=== PATIENT | female | born 1935 | race Caucasian/White ===

== ENCOUNTER 2017-12-11 08:40 | Inpatient (IN) ==
[2017-12-11] MEDS ORDERED: Ketorolac 15 MG/ML VIAL IVP ONE (09:00)
[2017-12-11] MEDS ORDERED: Pantoprazole 40 MG VIAL IVP ONE (09:01)
--- NOTE | 2017-12-11 09:06 | Emergency Department Note ---
Disposition Clinical Impression: Cholecystitis, Dilated bile duct, Troponin level elevated Disposition: Admitted As Inpatient Condition: Fair Abdominal Pain HPI - General Chief Complaint: ED Abdominal Pain Stated Complaint: ABD Pain Time Seen by Provider: 12/11/17 08:49 Source: patient Nursing Notes Reviewed: Yes Vital Signs Reviewed: Yes - History of Present Illness HPI Narrative: 82 year old female with history of GERD, hypertension presents with abdominal pain. Pt reported intermittent upper abdominal pain for 2 weeks. Since 3 am this morning, the pain became constant. It radiate to right upper abdomen and back. Associate with nausea. No vomiting. Loose stool once this morning. Brownish color. No blood in it. reported frequently urinating for a while, no dysuria. pt denied chill and fever. Appendectomy 50 years ago. No other abdomen surgery. Pt Subjective Complaint: abdominal pain Onset (ago): week(s) (2) Consistency: intermittent, Worsening Location: RUQ, epigastric Pain Scale: 10 Quality: stabbing, sharp Radiation: back - Related Data Home Medications Medication Instructions Recorded Confirmed Aspirin [Lo-Dose Aspirin EC] 81 mg PO DAILY 12/11/17 12/11/17 Cholecalciferol (D-3) [Vitamin D] 1,000 unit PO DAILY 12/11/17 12/11/17 Docusate [Colace] 100 mg PO BID PRN 12/11/17 12/11/17 Famotidine [Pepcid] 20 mg PO BID PRN 12/11/17 12/11/17 Isosorbide MONOnitrate (24 HR) 30 mg PO DAILY 12/11/17 12/11/17 [Imdur] Metoprolol Succinate [Toprol Xl] 25 mg PO HS 12/11/17 12/11/17 Vitamin E Acetate [Vitamin E] 400 unit PO DAILY 12/11/17 12/11/17 Allergies Allergy/AdvReac Type Severity Reaction Status Date / Time rosuvastatin [From Crestor] AdvReac Cramping Verified 12/11/17 13:47 of the Muscles Ukcqops-Cmq-Njq Reductase AdvReac Cramping Verified 12/11/17 13:47 Inhibitor of the [Statins] Muscles Constitutional: Denies: fever, chills Eyes: Denies: eye pain, eye discharge ENT ED: Denies: ear pain, throat pain Cardiovascular: Denies: chest pain, palpitations Respiratory: Denies: cough, dyspnea Gastrointestinal: Reports: abdominal pain, nausea. Denies: vomiting, diarrhea Genitourinary: Denies: urgency, dysuria, frequency Musculoskeletal: Denies: back pain, neck pain, joint swelling Integumentary: Denies: rash, abrasion, lesions Neurological: Denies: headache, weakness Psychiatric: Denies: anxiety, depression Endocrine: Denies: fatigue, heat or cold intolerance Hematological/Lymphatic: Denies: easy bleeding, easy bruising Allergic/Immunologic: Denies: facial swelling, urticaria Abdominal Pain PMH - Past Medical History Medical history: Reports: cancer, GERD, hypertension, TIA, other Female Surgical History: Reports: appendectomy Psychiatric history: Reports: anxiety - Social History Smoking status: Never smoker Alcohol use: Reports: none Drug use: Reports: none Physical Exam - General General appearance: alert, in no apparent distress - Head Head exam: atraumatic, normal inspection - Eye Eye exam: Present: normal appearance. Absent: scleral icterus, conjunctival injection - ENT ENT exam: normal exam, normal external ear exam - Neck Neck exam: Present: normal inspection, full ROM, trachea midline. Absent: tenderness - Chest Chest inspection: Present: normal inspection, symmetric chest wall rise. Absent : tenderness - Respiratory Respiratory exam: Present: normal lung sounds bilaterally. Absent: respiratory distress, wheezes - Cardiovascular Cardiovascular exam: Present: regular rate, normal rhythm - Abdominal Exam Abdominal exam: Present: soft, tenderness Abdominal tenderness: Present: RUQ, epigastrium - Extremities Exam Extremities exam: Present: normal inspection, full ROM. Absent: tenderness - Back Exam Back exam: Present: normal inspection, full ROM. Absent: tenderness - Neurological Exam Neurological exam: Present: alert, oriented X3 - Psychiatric Psychiatric exam: Present: normal affect, normal mood - Skin Skin exam: Present: warm, intact Course Vital Signs Temperature 98.1 F 12/11/17 08:41 Pulse Rate 71 12/11/17 08:41 Respiratory Rate 18 12/11/17 08:41 Blood Pressure 153/73 12/11/17 08:41 O2 Sat by Pulse Oximetry 97 12/11/17 08:41 Temperature 97.8 F 12/11/17 14:19 Pulse Rate 128 12/11/17 14:19 Respiratory Rate 18 12/11/17 14:19 Blood Pressure 117/54 12/11/17 14:19 O2 Sat by Pulse Oximetry 92 12/11/17 14:19 Oxygen Delivery Oxygen Delivery Room Air Abdominal Pain - MDM Narrative Medical decision making narrative: 82 year old female with history of hypertension and GERD presents with abdominal pain. Pt has intermittent upper abdominal pain for weeks. Pt complained of sudden onset severe pain in upper and right upper abdomen since 3 am this morning. It is constant sharp pain and radiate to right side back. Associate with nausea. No vomiting. No chill and fever. Physical exam: RUQ and Epigastrium tender. Labs: elelvated ALT,AST, ALK. Abdomen ct and ultrasound supported acute cholecystitis, dilated bile duct. Dr. Hinojosa saw the patient, Antibiotics started in ER. Dr. Hinojosa spoke with Dr. Cruz on the phone, suggested to admit patient to hospital due to elevated troponin I (pt has no chest pain, unremarkable EKG, most likely false positive, but need medical clearance). surgeon will see pt this afternoon, NPO from now. - Lab Data Lab results reviewed: Yes I reviewed the patient's lab results. Result diagrams: 12/11/17 08:51 12/11/17 08:51 Lab Results 12/11/17 12/11/17 12/11/17 Range/Units 08:51 08:51 14:00 WBC 11.1 (4.3-11.1) K/mcL RBC 3.81 L (3.82-4.97) M/mcL Hgb 12.3 (11.5-15.4) g/dL Hct 36.8 (35.3-44.9) % MCV 96.6 (83.0-100.0) fL MCH 32.3 (28.0-33.3) pg MCHC 33.4 (31.6-35.5) g/dL RDW 13.9 (11.5-14.5) % Plt Count 317 (140-400) K/mcL MPV 11.5 (9.4-12.4) fL Immature Gran % 0.5 (0-4) % Seg Neutrophils % 68.0 % Lymphocytes % 21.9 % Monocytes % 8.8 % Eosinophils % 0.4 % Basophils % 0.4 % Neutrophils # 7.6 (1.6-8.9) K/mcL Lymphocytes # 2.4 (0.6-4.6) K/mcL Monocytes # 1.0 (0.0-1.3) K/mcL Eosinophils # 0.1 (0.0-0.6) K/mcL Basophils # 0.0 (0.0-0.2) K/mcL Sodium 138 (136-145) mEq/L Potassium 3.8 (3.5-5.1) mEq/L Chloride 101 (98-107) mEq/L Carbon Dioxide 25 (23-29) mEq/L BUN 17 (8-23) mg/dL Creatinine 0.60 (0.60-1.20) mg/dL Est GFR ( Amer) > 60 (> 60) Est GFR (Non-Af Amer) > 60 (> 60) BUN/Creatinine Ratio 28 H (6-26) Glucose 114 H (70-105) mg/dL Calculated Osmolality 288 (280-300) Calcium 9.9 (8.6-10.3) mg/dL Total Bilirubin 2.8 H (0.3-1.0) mg/dL AST 181 H (13-39) Units/L ALT 211 H (7-52) Units/L Alkaline Phosphatase 708 H (34-104) Units/L Troponin I 0.04 H* (< 0.04) ng/mL Serum Total Protein 7.6 (6.4-8.9) g/dL Albumin 4.1 (3.5-5.7) g/dL Globulin 3.5 (2.4-3.5) g/dL Albumin/Globulin Ratio 1.2 (1.1-2.2) Lipase 61 (11-82) Units/L Urine Color [place] A (Yellow) Urine Clarity Cloudy A (Clear) Urine pH 5.5 (5.0-8.0) pH Units Ur Specific [place] 1.029 H (1.010-1.025) Urine Protein Trace (Neg-Trace) mg/dL Urine Glucose (UA) Normal (Normal) mg/dL Urine Ketones Trace H (Negative) mg/dL Urine Blood Negative (Negative) Urine Nitrite Negative (Negative) Urine Bilirubin Moderate H (Negative) Urine Urobilinogen Normal (Normal) mg/dL Ur Leukocyte Esterase Small H (Negative) Urine Microscopic RBC 0-3 (0-3) per hpf Urine Microscopic WBC 3-5 H (0-3) per hpf Ur Squamous Epith Cells Many H (None-Few) per lpf Amorphous Sediment Moderate H (Few) Urine Bacteria None Seen (None-Few) per hpf Hyaline Casts Few (None-Few) per lpf Urine Mucus Moderate H (Few) Ur Culture Indicated? NO. A (NO) - Radiology Data Radiology results reviewed: Yes I reviewed the patient's radiology results. COMPARISON: Abdominal CT 08/10/2017, gallbladder ultrasound 12/11/2017 HISTORY: ORDERING SYSTEM PROVIDED HISTORY: RUQ abd pain Additional tech notes: 16 One week history of generalized abdominal pain. FINDINGS: Lower Chest: There is mild bibasilar atelectasis. Organs: The gallbladder is distended, and demonstrates multiple layering gallstones, and also appears mildly thick-walled. There is also a mild amount of fat stranding within the gallbladder fossa. These findings are concerning for acute cholecystitis. There is mild common duct dilatation with a few small high attenuation foci noted within the proximal common duct, which could represent choledocholithiasis. The liver is unremarkable in noncontrast appearance. There are calcified splenic granulomata. The pancreas is unremarkable in CT appearance, without acute inflammatory change. The adrenal glands are normal bilaterally. There is chronic bilateral perinephric stranding, likely secondary to chronic medical renal disease. There is a cortical calcification within the medial aspect of the right kidney upper pole. There are no urinary collecting system calculi or hydronephrosis identified. GI/Bowel: Evaluation of the hollow GI tract demonstrates no evidence of abnormal bowel wall thickening, dilatation, or obstruction. There is no evidence of appendicitis. There is mild colonic diverticulosis. Pelvis: The urinary bladder is normal. Multiple phleboliths are noted. The uterus and bilateral adnexa are unremarkable in noncontrast appearance. There is no free pelvic fluid or pathologic lymphadenopathy. Peritoneum/Retroperitoneum: No intraperitoneal free air or free fluid is identified. There is mild fat stranding within the gallbladder fossa. No pathologic lymphadenopathy is identified. 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 No significant abdominal wall hernia is identified. Bones/Soft Tissues: There has been interval development of wedge compression fractures of the T9 and L2 vertebral bodies, which are both sclerotic in appearance, new from 08/10/2017. There is a stable wedge compression deformity of the superior endplate of L1. No definite osteolytic or osteoblastic lesion is seen. CT/CT abd pelvis wo no iv no oral IMPRESSION: 1. CT findings are suggestive of acute cholecystitis, with cholelithiasis, gallbladder distention, and wall thickening of the gallbladder. Suggest clinical correlation and correlation with today's gallbladder ultrasound findings. 2. Suspected choledocholithiasis with mild common duct dilatation. Correlation with today's gallbladder ultrasound is also suggested. 3. 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 Further follow-up of this abnormality is as advised below. 4. Acute to subacute wedge compression fractures of T9 and L2, new from prior studies. Suggest further characterization with a follow-up thoracolumbar MRI. RECOMMENDATIONS: Managing Abdominal Aortic Aneurysms 3.0-3.4 cm: Every 3 years. Reference: J Vasc Surg. 2008;50(4 Suppl):S2-49 D/ / 12/11/2017 11:26:34 Jhonny Faith MD / [email or web address] FINDINGS: LIVER: The liver demonstrates normal echogenicity without evidence of intrahepatic biliary ductal dilatation. BILIARY SYSTEM: The gallbladder is distended with shadowing gallstones and sludge. The gallbladder wall appears mildly thickened with trace pericholecystic fluid. The sonographic Hernandez sign is present. The common bile duct is dilated to 12 mm with echogenic foci seen within the common bile duct. RIGHT KIDNEY: The right kidney is grossly unremarkable without evidence of hydronephrosis. PANCREAS: Visualized portions of the pancreas are unremarkable. OTHER: The distal abdominal aorta measures up to 3.3 cm. US/US gall bladder IMPRESSION: 1. Gallstones are present with findings consistent with acute cholecystitis. 2. Choledocholithiasis is present with dilation of the common bile duct up to 1.2 cm. There is at least mild intrahepatic biliary dilation. 3. Infrarenal abdominal aortic aneurysm measures up to 3.3 cm. Follow-up per guidelines below. RECOMMENDATIONS: Managing Abdominal Aortic Aneurysms 2.6-2.9 cm: Every 5 years* 3.0-3.4 cm: Every 3 years. 3.5-3.9 cm: Every 1 year. 4.0-4.4 cm: Every 1 year. Recommend vascular consultation. 4.5-5.4 cm: Every 6 months. Recommend vascular consultation. Greater than or equal to 5.5 cm: Referral to vascular surgeon. *For abdominal aortas with maximum diameter of 2.6-2.9 cm meeting criteria for AAA (>50% of proximal normal segment). Reference: J Vasc Surg. 2009 May;50(4 Suppl):S2-49 D/ / 12/11/2017 11:34:12 Eduardo Hannon MD / saul
[2017-12-11] MEDS: Ondansetron 4 MG/2 ML VIAL IVP ONE ×2 (09:12→21:34)
[2017-12-11 09:15] LABS: Basophils % 0.4 %; Eosinophils # 0.1 K/mcL (0.0-0.6); Eosinophils % 0.4 %; Hematocrit 36.8 % (35.3-44.9); Hemoglobin 12.3 g/dL (11.5-15.4); Immature Granulocytes % 0.5 % (0-4); Lymphocytes # 2.4 K/mcL (0.6-4.6); Lymphocytes % 21.9 %; Mean Corpuscular HGB Conc 33.4 g/dL (31.6-35.5); Mean Corpuscular Hemoglobin 32.3 pg (28.0-33.3); Mean Corpuscular Volume 96.6 fL (83.0-100.0); Mean Platelet Volume 11.5 fL (9.4-12.4); Monocytes % 8.8 %; Neutrophils # 7.6 K/mcL (1.6-8.9); Platelet Count 317 K/mcL (140-400); Red Blood Count 3.81 M/mcL (3.82-4.97); Red Cell Distribution Width 13.9 % (11.5-14.5)
[2017-12-11] MEDS ORDERED: 0.9 % Sodium Chloride 1,000 ML ONE (09:34)
[2017-12-11 09:42] LABS: Alanine Aminotransferase 211 Units/L (7-52); Albumin 4.1 g/dL (3.5-5.7); Albumin/Globulin Ratio 1.2 (1.1-2.2); Alkaline Phosphatase 708 Units/L (34-104); Aspartate Amino Transferase 181 Units/L (13-39); BUN/Creatinine Ratio 28 (6-26); Bilirubin,Total 2.8 mg/dL (0.3-1.0); Blood Urea Nitrogen 17 mg/dL (8-23); Calcium 9.9 mg/dL (8.6-10.3); Carbon Dioxide 25 mEq/L (23-29); Chloride 101 mEq/L (98-107); Globulin 3.5 g/dL (2.4-3.5); Glucose 114 mg/dL (70-105); Lipase 61 Units/L (11-82); Osmolality,Calculated 288 (280-300); Potassium 3.8 mEq/L (3.5-5.1); Sodium 138 mEq/L (136-145); Total Protein 7.6 g/dL (6.4-8.9); eGFR For African Americans > 60 (> 60); eGFR For Non-African Americans > 60 (> 60)
[2017-12-11 09:49] LABS: Troponin I 0.04 ng/mL (< 0.04)
--- NOTE | 2017-12-11 09:58 | Emergency Department Note ---
Disposition Clinical Impression: Cholecystitis, Dilated bile duct, Troponin level elevated Disposition: Admitted As Inpatient Condition: Fair General Adult HPI - General Chief complaint: ED Abdominal Pain Stated complaint: ABD Pain Time Seen by Provider: 12/11/17 08:49 Source: patient - History of Present Illness Pain Scale: 8 - Related Data Home Medications Medication Instructions Recorded Confirmed Aspirin [Lo-Dose Aspirin EC] 81 mg PO DAILY 12/11/17 12/11/17 Cholecalciferol (D-3) [Vitamin D] 1,000 unit PO DAILY 12/11/17 12/11/17 Docusate [Colace] 100 mg PO BID PRN 12/11/17 12/11/17 Famotidine [Pepcid] 20 mg PO BID PRN 12/11/17 12/11/17 Isosorbide MONOnitrate (24 HR) 30 mg PO DAILY 12/11/17 12/11/17 [Imdur] Metoprolol Succinate [Toprol Xl] 25 mg PO HS 12/11/17 12/11/17 Vitamin E Acetate [Vitamin E] 400 unit PO DAILY 12/11/17 12/11/17 Allergies Allergy/AdvReac Type Severity Reaction Status Date / Time rosuvastatin [From Crestor] AdvReac Cramping Verified 12/11/17 13:47 of the Muscles [place]-Llh-Axr Reductase AdvReac Cramping Verified 12/11/17 13:47 Inhibitor of the [Statins] Muscles Constitutional: Denies: fever, chills Eyes: Denies: eye pain, eye discharge ENT ED: Denies: ear pain, throat pain Cardiovascular: Denies: chest pain, palpitations Respiratory: Denies: cough, dyspnea Gastrointestinal: Reports: abdominal pain, nausea. Denies: vomiting, diarrhea Genitourinary: Denies: urgency, dysuria, frequency Musculoskeletal: Denies: back pain, neck pain, joint swelling Integumentary: Denies: rash, abrasion, lesions Neurological: Denies: headache, weakness Psychiatric: Denies: anxiety, depression Endocrine: Denies: fatigue, heat or cold intolerance Hematological/Lymphatic: Denies: easy bleeding, easy bruising Allergic/Immunologic: Denies: facial swelling, urticaria Past Medical History - Past Medical History Medical history: Reports: cancer, GERD, hypertension, TIA, other Surgical history: Reports: appendectomy, breast surgery (Right radical mastectomy for breast cancer), cancer surgery, orthopedic, other (Reduction internal fixation left elbow. Removal of hardware.) Psychiatric history: Reports: anxiety - Social History Smoking Status: Never smoker Smokeless Tobacco Status: No Alcohol use: Reports: none Drug use: Reports: none Physical Exam - General General appearance: alert, in no apparent distress Course - Consultations Consultation #1: Discussed with . will see the patient in contrast Time: 11:30 Consultation #2: Discussed with Dr. Díaz who requested admission to hospitalist needles to the patient in consult. Time: 12:24 Consultation #3: Discussed with Dr. Rosas, admit Time: 13:07 Vital Signs Temperature 98.1 F 12/11/17 08:41 Pulse Rate 71 12/11/17 08:41 Respiratory Rate 18 12/11/17 08:41 Blood Pressure 153/73 12/11/17 08:41 O2 Sat by Pulse Oximetry 97 12/11/17 08:41 Temperature 97.8 F 12/11/17 14:19 Pulse Rate 128 12/11/17 14:19 Respiratory Rate 18 12/11/17 14:19 Blood Pressure 117/54 12/11/17 14:19 O2 Sat by Pulse Oximetry 92 12/11/17 14:19 Oxygen Delivery Oxygen Delivery Room Air Medical Decision Making - Lab Data Result diagrams: 12/11/17 08:51 12/11/17 08:51 Lab Results 12/11/17 12/11/17 12/11/17 Range/Units 08:51 08:51 14:00 WBC 11.1 (4.3-11.1) K/mcL RBC 3.81 L (3.82-4.97) M/mcL Hgb 12.3 (11.5-15.4) g/dL Hct 36.8 (35.3-44.9) % MCV 96.6 (83.0-100.0) fL MCH 32.3 (28.0-33.3) pg MCHC 33.4 (31.6-35.5) g/dL RDW 13.9 (11.5-14.5) % Plt Count 317 (140-400) K/mcL MPV 11.5 (9.4-12.4) fL Immature Gran % 0.5 (0-4) % Seg Neutrophils % 68.0 % Lymphocytes % 21.9 % Monocytes % 8.8 % Eosinophils % 0.4 % Basophils % 0.4 % Neutrophils # 7.6 (1.6-8.9) K/mcL Lymphocytes # 2.4 (0.6-4.6) K/mcL Monocytes # 1.0 (0.0-1.3) K/mcL Eosinophils # 0.1 (0.0-0.6) K/mcL Basophils # 0.0 (0.0-0.2) K/mcL Sodium 138 (136-145) mEq/L Potassium 3.8 (3.5-5.1) mEq/L Chloride 101 (98-107) mEq/L Carbon Dioxide 25 (23-29) mEq/L BUN 17 (8-23) mg/dL Creatinine 0.60 (0.60-1.20) mg/dL Est GFR ( Amer) > 60 (> 60) Est GFR (Non-Af Amer) > 60 (> 60) BUN/Creatinine Ratio 28 H (6-26) Glucose 114 H (70-105) mg/dL Calculated Osmolality 288 (280-300) Calcium 9.9 (8.6-10.3) mg/dL Total Bilirubin 2.8 H (0.3-1.0) mg/dL AST 181 H (13-39) Units/L ALT 211 H (7-52) Units/L Alkaline Phosphatase 708 H (34-104) Units/L Troponin I 0.04 H* (< 0.04) ng/mL Serum Total Protein 7.6 (6.4-8.9) g/dL Albumin 4.1 (3.5-5.7) g/dL Globulin 3.5 (2.4-3.5) g/dL Albumin/Globulin Ratio 1.2 (1.1-2.2) Lipase 61 (11-82) Units/L Urine Color [place] A (Yellow) Urine Clarity Cloudy A (Clear) Urine pH 5.5 (5.0-8.0) pH Units Ur Specific [place] 1.029 H (1.010-1.025) Urine Protein Trace (Neg-Trace) mg/dL Urine Glucose (UA) Normal (Normal) mg/dL Urine Ketones Trace H (Negative) mg/dL Urine Blood Negative (Negative) Urine Nitrite Negative (Negative) Urine Bilirubin Moderate H (Negative) Urine Urobilinogen Normal (Normal) mg/dL Ur Leukocyte Esterase Small H (Negative) Urine Microscopic RBC 0-3 (0-3) per hpf Urine Microscopic WBC 3-5 H (0-3) per hpf Ur Squamous Epith Cells Many H (None-Few) per lpf Amorphous Sediment Moderate H (Few) Urine Bacteria None Seen (None-Few) per hpf Hyaline Casts Few (None-Few) per lpf Urine Mucus Moderate H (Few) Ur Culture Indicated? NO. A (NO) Attestation Statement - Attestation Attestation: For this encounter, I have reviewed the [employer] FINAL or PA documentation, treatment plan, and medical decision making; and I have had face to face time with this patient. 82-year-old who comes in complaining of right upper quadrant pain. Has seen her family doctor who had ordered an ultrasound but insurance issues has not prevented her from getting it. Her pain is getting worse. Patient was initially seen by the PA and was given meds. Nursing staff came to me because the patient was pale and diaphoretic initial blood pressure 147 systolic. Repeat blood pressure was 91 over palp. On exam patient is tender to right upper quadrant going through to her back it will feel pulsatile mass. Patient will be given a fluid bolus ultrasound is pending CT of the abdomen pending. Close monitoring of blood pressure.
[2017-12-11] MEDS ORDERED: MetroNIDAZOLE 500 MG/100 ML 500 MG/100 ML BAG IVPB ONE (11:03)
--- NOTE | 2017-12-11 13:35 | Electrocardiograph Report ---
[facility] Test Date: 2017-12-11 Pat Name: Bre Lozano Department: 103 Room: 3A62 Gender: F Photo Technologist: : [id number] Requested By: Chuck Hayes Order Number: [id number] Reading MD: Koby Irvin MD Measurements Intervals [place] Rate: 55 P: 82 ID: [id number] QRS: -79 QRSD: 141 T: 27 QT: 474 QTc: 463 Interpretive Statements SINUS BRADYCARDIA RIGHT BUNDLE BRANCH BLOCK [120+ ms QRS DURATION, UPRIGHT V1, 40+ ms S IN I/aVL/V4/V5/V6] LEFT ANTERIOR FASCICULAR BLOCK [QRS AXIS <= -45, QR IN I, RS IN II] Electronically Signed On 12-11-2017 13:34:18 EDT by Koby Irvin MD
[2017-12-11] MEDS ORDERED: Naloxone 0.4 MG/ML INJ IVP PRN (14:07)
[2017-12-11 14:08] LABS: Bilirubin,Urine Moderate (Negative); Blood,Urine Negative (Negative); Clarity,Urine Cloudy (Clear); Color,Urine Orange (Yellow); Glucose,Urine (UA) Normal (Normal); Ketones,Urine Trace mg/dL (Negative); Leukocyte Esterase,Urine Small (Negative); Nitrite,Urine Negative (Negative); PH,Urine 5.5 pH Units (5.0-8.0); Protein,Urine Trace mg/dL (Neg-Trace); Specific Gravity,Urine 1.029 (1.010-1.025); Urobilinogen,Urine Normal (Normal)
[2017-12-11 14:12] LABS: Bacteria,Urine None Seen per hpf (None-Few); Hyaline Casts,Urine Few per lpf (None-Few); Squamous Epithelial Cell,Urine Many per lpf (None-Few)
[2017-12-11] MEDS ORDERED: Famotidine 20 MG TABLET PO PRN (14:12)
--- NOTE | 2017-12-11 14:14 | Internal Med History&Physical ---
Date of Encounter: 12/11/17 Time of Encounter: 14:13 Internal Medicine - H&P: HPI Chief complaint: right sided abdominal pain Admitted From: Emergency Dept Plans for Post Hospital Care: Home History of present illness: Ms. Lozano is a 82 year old female was about an medical history of hypertension, GERD, history of breast cancer and status post mastectomy many years back. Patient presented with a right-sided abdominal pain which is ongoing for last 48 hours but in last 24 hours it was gradually worsened. She decided to come to the emergency room at 3 AM the cause at that time the pain was very severe. Patient denies palpitation, shortness of breath, dizziness and diarrhea. Workup in the emergency room: Patient was evaluated in the emergency room. Baseline labs are drawn. It was consistent with acute cholecystitis. Reason for admission :acute cholecystitis patient might need a ERCP/surgical intervention. Past Med Surg Social Fam HX - Past Medical History Medical history: cancer, GERD, hypertension, TIA, other Psychiatric history: anxiety - Past Surgical History Surgical History: appendectomy, breast surgery (Right radical mastectomy for breast cancer), cancer surgery, orthopedic, other (Reduction internal fixation left elbow. Removal of hardware.) - Social History Smoking Status: Never smoker Smokeless Tobacco Status: No Alcohol use: none Drug use: none - Family History Father Hx Family Neurologic Disorders: Yes Sister Hx Family Cancer: Yes (colon) Brother Hx Family Cardiac Disorders: Yes Internal Medicine - H&P: Meds Aspirin [Lo-Dose Aspirin EC] 81 mg PO DAILY 12/11/17 [History] Cholecalciferol (D-3) [Vitamin D] 1,000 unit PO DAILY 12/11/17 [History] Docusate [Colace] 100 mg PO BID PRN 12/11/17 [History] Famotidine [Pepcid] 20 mg PO BID PRN 12/11/17 [History] Isosorbide MONOnitrate (24 HR) [Imdur] 30 mg PO DAILY 12/11/17 [History] Metoprolol Succinate [Toprol Xl] 25 mg PO HS 12/11/17 [History] Vitamin E Acetate [Vitamin E] 400 unit PO DAILY 12/11/17 [History] 3 Allergy/AdvReac Type Severity Reaction Status Date / Time rosuvastatin [From Crestor] AdvReac Cramping Verified 12/11/17 13:47 of the Muscles Mmdjhwh-Zzq-Sgp Reductase AdvReac Cramping Verified 12/11/17 13:47 Inhibitor of the [Statins] Muscles All Systems PM: A 10-system review of systems was performed and is negative for pertinent findings except as documented above in the HPI. - Constitutional Constitutional: no chills, no fever(s), no night sweats - EENT Eyes: no change in vision, no discharge, no pain, no photophobia Ears: no ear discharge, no ear pain, no tinnitus Nose, mouth and throat: no dysphagia, no nasal discharge, no neck pain, no sore throat - Cardiovascular Cardiovascular ROS IM: no chest pain, no diaphoresis, no dyspnea, no lightheadedness, no palpitations, no syncope - Respiratory Respiratory: no cough, no dyspnea, no wheezing, no excessive phlegm production - Gastrointestinal Gastrointestinal: abdominal pain, no diarrhea, no hematemesis, no hematochezia, no melena, no nausea, no vomiting - Genitourinary Genitourinary: no change in urinary stream, no dysuria, no flank pain, no hematuria - Musculoskeletal Musculoskeletal ROS IM: no numbness, no tingling - Integumentary Integumentary IM: no rash, no unusual bruising - Neurological Neurological ROS: no confusion, no convulsions, no focal weakness, no numbness, no tingling, no tremor(s) - Hematologic/Lymphatic Hematologic/Lymphatic: no easy bruising - Constitutional Vitals: Temp Pulse Resp BP Pulse Ox 98.1 F 63 18 110/55 98 12/11/17 08:58 12/11/17 12:59 12/11/17 12:59 12/11/17 12:59 12/11/17 12:59 General appearance: Present: A&O X 3, pleasant, no acute distress - Head Head exam: Present: atraumatic, normocephalic - Eye Eye exam: Present: PERRL, conjuntiva pink, sclera anicteric Pupils: Present: PERRL - Neck Neck exam general surgery: Present: supple, trachea midline. Absent: lymphadenopathy - Respiratory Respiratory exam: Present: CTAB. Absent: accessory muscle use, rales, rhonchi, wheezes - Cardiovascular Cardiovascular exam: Present: RRR, +S1, +S2. Absent: diastolic murmur, gallop, rubs, systolic murmur - GI/Abdominal GI/Abdominal exam: Present: normal bowel sounds, soft, no peritoneal signs. Absent: distended, tenderness - Extremities Exam Extremities exam: Present: warm, radial pulses palpable and symmetrical. Absent : calf tenderness, cyanotic, pedal edema - Neurological Exam Neurological exam: Present: CN II-XII intact, oriented X3, no focal deficits. Absent: pronater drift, facial droop, speech deficit - Skin Skin exam: Present: dry, intact Internal Med - H&P Results - Labs CBC & Chem 7: 12/11/17 08:51 12/11/17 08:51 - Assessment and plan (1) Acute cholecystitis Current Visit: Yes Status: Acute Assessment and plan: 80 per/mL Right-sided persistent pain. Ultrasound/CT scan/clinical picture consistent with: Acute cholecystitis On ciprofloxacin/Flagyl Pain control. Gastroenterology on board for possible ERCP. Surgery on board for further recommendations. I examined this patient in the emergency room. Plan of care extent to the patient. She verbalized understanding. (2) GERD (gastroesophageal reflux disease) Current Visit: No Status: Chronic Assessment and plan: Patient does have a gastroesophageal reflux disease. We will start patient on PPI Qualifiers: Esophagitis presence: without esophagitis Qualified Code(s): K21.9 - Gastro -esophageal reflux disease without esophagitis (3) HLD (hyperlipidemia) Current Visit: No Status: Chronic Assessment and plan: We will resume statin Qualifiers: Hyperlipidemia type: unspecified Qualified Code(s): E78.5 - Hyperlipidemia , unspecified (4) HTN (hypertension) Current Visit: No Status: Chronic Assessment and plan: Patient is known to have a hypertension. We will resume home medication. We will monitor closely patient's blood pressure. Qualifiers: Hypertension type: essential hypertension Qualified Code(s): I10 - Essential (primary) hypertension (5) DVT prophylaxis Current Visit: No Status: Acute Assessment and plan: Heparin Medical decision making: This patient has a moderate to severe risk of worsening in spite of being on appropriate medication due to the underlying complex comorbid condition. - Time Spent With Patient Total time spent is greater than 50% in coordination of care (as documented) at patient's floor/unit and/or counseling patient:
[2017-12-11 14:27] LABS: Mucus,Urine Moderate (Few)
[2017-12-11 14:28] LABS: Amorphous Sediment,Urine Moderate (Few); RBC,Urine 0-3 per hpf (0-3)
[2017-12-11 15:24] LABS: Troponin I < 0.03 ng/mL (< 0.04)
--- NOTE | 2017-12-11 15:52 | General Surgery Consult Note ---
<Noel Bello - Last Filed: 12/11/17 15:49> Date of Encounter: 12/11/17 Time of Encounter: 15:49 Assessment and Plan (1) Acute cholecystitis Status: Acute History and physical consistent with acute cholecystitis. Positive lab workup for biliary stasis; bilirubin 2.8, direct bilirubin pending, AST 181, ALT 211, ALP 708. Lipase within range at 61. UA demonstrated orange cloudy urine; not overly concerning for infection. CT of the abdomen as well as RUQ ultrasound both supportive of acute cholecystitis with choledocholithiasis. SIRS/qSOFA negative with no leukocytosis. Primary admit to hospitalist with GI & Surg consult. Recommendations: - control nausea and pain pending further evaluation - keep NPO for possible ERCP, if recommended by gastroenterology - continue IV Cipro and Flagyl - IVF at maintenance rate Plan: - awaiting further recommendations from GI service - further recommendations from surgical standpoint pending GI input - will re-evaluate in AM - co-morbidity management and symptomatic management per hospitalist team RUQ U/S "The gallbladder is distended with shadowing gallstones and sludge. The gallbladder wall appears mildly thickened with trace pericholecystic fluid. The sonographic Hernandez sign is present. The common bile duct is dilated to 12 mm with echogenic foci seen within the common bile duct." CT-Abd/Pelv "CT findings are suggestive of acute cholecystitis, with cholelithiasis, gallbladder distention, and wall thickening of the gallbladder. Suggest clinical correlation and correlation with today's gallbladder ultrasound findings." History of Present Illness Consult date: 12/11/17 (Dr. Dow) History of present illness: Bre Lozano is an 82-year-old female with past medical history of GERD, HTN, and h/o breast cancer s/p right mastectomy "25 years ago". Admitted for acute cholecystitis. Patient states has had right upper quadrant abdominal pain for the past month which she describes initially as an achy sensation with some concurrent burning that was more midline epigastric. Patient has been seen for this by her PCP with one outpatient clinic follow-up and intention to do an outpatient gallbladder ultrasound which was ultimately never completed. Pain has been episodic with gradual worsening over the last week. She decided to go to the ER after waking up at 3AM this morning in severe pain that left her "doubled over". Again, pain is described as a sharp right upper quadrant pain with intermittent burning quality. Patient states pain radiates into her back. Pain is cramping in quality. Patient does not note any specific correlation with any particular foods. RUQ U/S obtained in ED demonstrated findings consistent with acute cholecystitis including distended gallbladder, intraluminal opacities with posterior shadowing, sludge, thickened wall, pericholecystic fluid, CBD dilatation to 1.2 cm with echogenic focus within CBD, and evidence of mild intrahepatic biliary dilatation. CT-abd also showed significantly distended gallbladder with intraluminal opacities, and gallbladder wall thickening. CBC in the emergency department was normal, however, chemistry studies demonstrated elevated bilirubin of 2.3, elevated ALP, elevated AST/ALT consistent with biliary stasis. Electrolytes were normal. Patient started on Cipro and Flagyl and transferred to the medical surgical floor with GI & Surgical consults. Past Med Surg Social Fam HX - Past Medical History Attestation: Yes The following information was validated with the patient. Source: patient Medical history: cancer, GERD, hypertension, malignancy (h/o breast cancer s/p mastectomy 25 years ago per patient; no current tx), TIA, other Psychiatric history: anxiety - Past Surgical History Surgical History: appendectomy, breast surgery, cancer surgery, orthopedic, other - Social History Smoking Status: Never smoker Smokeless Tobacco Status: No Alcohol use: none Drug use: none - Family History Father Hx Family Neurologic Disorders: Yes Sister Hx Family Cancer: Yes (colon) Brother Hx Family Cardiac Disorders: Yes Medications and Allergies Aspirin [Lo-Dose Aspirin EC] 81 mg PO DAILY 12/11/17 [History] Cholecalciferol (D-3) [Vitamin D] 1,000 unit PO DAILY 12/11/17 [History] Docusate [Colace] 100 mg PO BID PRN 12/11/17 [History] Famotidine [Pepcid] 20 mg PO BID PRN 12/11/17 [History] Isosorbide MONOnitrate (24 HR) [Imdur] 30 mg PO DAILY 12/11/17 [History] Metoprolol Succinate [Toprol Xl] 25 mg PO HS 12/11/17 [History] Vitamin E Acetate [Vitamin E] 400 unit PO DAILY 12/11/17 [History] HYDROcodone/Acet 5/325 mg [[place] 5-325 mg] 1 tab PO Q6H PRN 7 Days #28 tab 12/14 [Rx] Ondansetron ODT [Zofran ODT] 4 mg PO Q6H #15 tab.rapdis 12/14/17 [Rx] 3 Allergy/AdvReac Type Severity Reaction Status Date / Time rosuvastatin [From Crestor] AdvReac Cramping Verified 12/11/17 13:47 of the Muscles Vydporr-Ajt-Fia Reductase AdvReac Cramping Verified 12/11/17 13:47 Inhibitor of the [Statins] Muscles Review of Systems All systems PM: She denies any fevers, chills, sweats, myalgias, headache, syncope, lightheadedness, chest pain, palpitations, shortness of breath, cough, congestion. Has had nausea but not vomiting. Denies diarrhea, or any blood in stools. No dysuria or hematuria. General Surgery Exam Initial Vital Signs Temp Pulse Resp BP Pulse Ox 98.1 F 71 18 153/73 97 12/11/17 08:41 12/11/17 08:41 12/11/17 08:41 12/11/17 08:41 12/11/17 08:41 VITAL SIGNS: Reviewed. See [facility] GENERAL: comfortably supine, conversational, NAD HEENT: Normocephalic, PER, EOMi, oropharynx pink/moist, no JVD noted. Bilateral scleral icterus. CV: b/l rad pulses 2+, RRR, no murmurs or gallops, no JVD RESPIRATORY: CTAB without wheezes, rales, or rhonchi ABD: soft, exquisitely tender to RUQ (otherwise non-tender), no rebound/guarding /rigidity, no peritoneal signs, positive Hernandez Sign EXTREMITY: grossly normal motor function, no pedal edema NEUROLOGIC EXAM: AOx3, obeys commands, no speech deficits. PSYCHIATRIC: normal mood and affect SKIN: no gross lesions, rashes, or skin changes Exam Initial Vital Signs Temp Pulse Resp BP Pulse Ox 98.1 F 71 18 153/73 97 12/11/17 08:41 12/11/17 08:41 12/11/17 08:41 12/11/17 08:41 12/11/17 08:41 Results - Labs 12/11/17 08:51 12/11/17 08:51 Abnormal lab results RBC 3.81 M/mcL (3.82-4.97) L 12/11/17 08:51 BUN/Creatinine Ratio 28 (6-26) H 12/11/17 08:51 Glucose 114 mg/dL (70-105) H 12/11/17 08:51 Total Bilirubin 2.8 mg/dL (0.3-1.0) H 12/11/17 08:51 AST 181 Units/L (13-39) H 12/11/17 08:51 ALT 211 Units/L (7-52) H 12/11/17 08:51 Alkaline Phosphatase 708 Units/L (34-104) H 12/11/17 08:51 Urine Color [place] (Yellow) A 12/11/17 14:00 Urine Clarity Cloudy (Clear) A 12/11/17 14:00 Ur Specific [place] 1.029 (1.010-1.025) H 12/11/17 14:00 Urine Ketones Trace mg/dL (Negative) H 12/11/17 14:00 Urine Bilirubin Moderate (Negative) H 12/11/17 14:00 Ur Leukocyte Esterase Small (Negative) H 12/11/17 14:00 Urine Microscopic WBC 3-5 per hpf (0-3) H 12/11/17 14:00 Ur Squamous Epith Cells Many per lpf (None-Few) H 12/11/17 14:00 Amorphous Sediment Moderate (Few) H 12/11/17 14:00 Urine Mucus Moderate (Few) H 12/11/17 14:00 Ur Culture Indicated? NO. (NO) A 12/11/17 14:00 All other labs normal. Consult Discharge Plan - Plan Referrals: Gian Juarez DO [Primary Care Provider] - Prescriptions: HYDROcodone/Acet 5/325 mg [[place] 5-325 mg] 1 tab PO Q6H PRN 7 Days #28 tab PRN Reason: Moderate Pain Ondansetron ODT [Zofran ODT] 4 mg PO Q6H #15 tab.chemo <Jose Alfredo Díaz M - Last Filed: 12/15/17 07:31> Date of Encounter: 12/11/17 Review of Systems All systems PM: The remainder of the systems were reviewed and are negative General Surgery Exam Initial Vital Signs Temp Pulse Resp BP Pulse Ox 98.1 F 71 18 153/73 97 12/11/17 08:41 12/11/17 08:41 12/11/17 08:41 12/11/17 08:41 12/11/17 08:41 Exam Initial Vital Signs Temp Pulse Resp BP Pulse Ox 98.1 F 71 18 153/73 97 12/11/17 08:41 12/11/17 08:41 12/11/17 08:41 12/11/17 08:41 12/11/17 08:41 Results - Labs 12/13/17 04:20 12/13/17 04:20 Abnormal lab results RBC 3.09 M/mcL (3.82-4.97) L 12/12/17 01:38 Hgb 9.7 g/dL (11.5-15.4) L D 12/12/17 01:38 Hct 29.5 % (35.3-44.9) L 12/12/17 01:38 PT 12.8 Seconds (9.4-12.1) H 12/12/17 01:38 Chloride 108 mEq/L (98-107) H 12/12/17 01:38 Creatinine 0.59 mg/dL (0.60-1.20) L 12/12/17 01:38 Total Bilirubin 2.0 mg/dL (0.3-1.0) H 12/12/17 01:38 Direct Bilirubin 2.4 mg/dL (0.0-0.2) H 12/11/17 14:51 AST 205 Units/L (13-39) H 12/12/17 01:38 ALT 224 Units/L (7-52) H 12/12/17 01:38 Alkaline Phosphatase 598 Units/L (34-104) H 12/12/17 01:38 B-Natriuretic Peptide 170 pg/mL (Less than 100) H 12/12/17 01:38 Serum Total Protein 5.9 g/dL (6.4-8.9) L 12/12/17 01:38 Albumin 3.2 g/dL (3.5-5.7) L 12/12/17 01:38 Urine Color [place] (Yellow) A 12/11/17 14:00 Urine Clarity Cloudy (Clear) A 12/11/17 14:00 Ur Specific [place] 1.029 (1.010-1.025) H 12/11/17 14:00 Urine Ketones Trace mg/dL (Negative) H 12/11/17 14:00 Urine Bilirubin Moderate (Negative) H 12/11/17 14:00 Ur Leukocyte Esterase Small (Negative) H 12/11/17 14:00 Urine Microscopic WBC 3-5 per hpf (0-3) H 12/11/17 14:00 Ur Squamous Epith Cells Many per lpf (None-Few) H 12/11/17 14:00 Amorphous Sediment Moderate (Few) H 12/11/17 14:00 Urine Mucus Moderate (Few) H 12/11/17 14:00 Ur Culture Indicated? NO. (NO) A 12/11/17 14:00 Diabetes panel 12/12/17 Range/Units 01:38 Sodium 140 (136-145) mEq/L Potassium 3.9 (3.5-5.1) mEq/L Chloride 108 H (98-107) mEq/L Carbon Dioxide 27 (23-29) mEq/L BUN 13 (8-23) mg/dL Creatinine 0.59 L (0.60-1.20) mg/dL Glucose 103 (70-105) mg/dL Calcium 8.9 (8.6-10.3) mg/dL AST 205 H (13-39) Units/L ALT 224 H (7-52) Units/L Alkaline Phosphatase 598 H (34-104) Units/L Albumin 3.2 L (3.5-5.7) g/dL Calcium panel 12/12/17 Range/Units 01:38 Calcium 8.9 (8.6-10.3) mg/dL Phosphorus 3.3 (2.7-4.5) mg/dL Albumin 3.2 L (3.5-5.7) g/dL Pituitary panel 12/12/17 Range/Units 01:38 Sodium 140 (136-145) mEq/L Potassium 3.9 (3.5-5.1) mEq/L Chloride 108 H (98-107) mEq/L Carbon Dioxide 27 (23-29) mEq/L BUN 13 (8-23) mg/dL Creatinine 0.59 L (0.60-1.20) mg/dL Glucose 103 (70-105) mg/dL Calcium 8.9 (8.6-10.3) mg/dL Adrenal panel 12/12/17 Range/Units 01:38 Sodium 140 (136-145) mEq/L Potassium 3.9 (3.5-5.1) mEq/L Chloride 108 H (98-107) mEq/L Carbon Dioxide 27 (23-29) mEq/L BUN 13 (8-23) mg/dL Creatinine 0.59 L (0.60-1.20) mg/dL Glucose 103 (70-105) mg/dL Calcium 8.9 (8.6-10.3) mg/dL Total Bilirubin 2.0 H (0.3-1.0) mg/dL AST 205 H (13-39) Units/L ALT 224 H (7-52) Units/L Alkaline Phosphatase 598 H (34-104) Units/L Albumin 3.2 L (3.5-5.7) g/dL All other labs normal. - Attending Attestation I examined this patient and my medical decision-making was reviewed with the Resident Physician. I agree with the documented findings, disposition and treatment plan as described except to the extent set forth below. I reviewed the above assessment and evaluation and agree with the above overall plan. Patient had increasing abdominal pain symptoms and states laboratory studies showed an elevated bilirubin level. She also, bile duct dilation. Gastroenterology has been consulted and likely plans for an ERCP for tomorrow. Then depending upon the results we will follow along with the recommendation for laparoscopic cholecystectomy.
[2017-12-11] MEDS: *HR* Heparin 5,000 UNIT/ML VIAL SQ SCH (16:20)
[2017-12-11] MEDS: MetroNIDAZOLE 500 MG/100 ML 500 MG/100 ML BAG IVPB SCH (16:20)
[2017-12-11] MEDS: 0.9 % Sodium Chloride 1,000 ML IVC SCH (16:20)
[2017-12-11 17:34] LABS: Bilirubin,Direct 2.4 mg/dL (0.0-0.2)
[2017-12-11] MEDS: Metoprolol XL (24 HR) Succ 50 MG TAB.ER.24H PO SCH (21:34)
--- NOTE | 2017-12-11 23:53 | Anesthesia Evaluation PreOp ---
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: TIA (no residual) Other Medical History: GERD, Other (breast cancer) Anesthesia History: No Prior Anesthetic Complications, Past Anesthesia ( mastectomy, ORIF elbow, appy) Alcohol Use: none Drug use: none Medications and Allergies Aspirin [Lo-Dose Aspirin EC] 81 mg PO DAILY 12/11/17 [History] Cholecalciferol (D-3) [Vitamin D] 1,000 unit PO DAILY 12/11/17 [History] Docusate [Colace] 100 mg PO BID PRN 12/11/17 [History] Famotidine [Pepcid] 20 mg PO BID PRN 12/11/17 [History] Isosorbide MONOnitrate (24 HR) [Imdur] 30 mg PO DAILY 12/11/17 [History] Metoprolol Succinate [Toprol Xl] 25 mg PO HS 12/11/17 [History] Vitamin E Acetate [Vitamin E] 400 unit PO DAILY 12/11/17 [History] 3 Allergy/AdvReac Type Severity Reaction Status Date / Time rosuvastatin [From Crestor] AdvReac Cramping Verified 12/11/17 13:47 of the Muscles Iqjzsnh-Fqw-Lai Reductase AdvReac Cramping Verified 12/11/17 13:47 Inhibitor of the [Statins] Muscles - Meds/Allergy Pre-op Review Medications Reviewed: Yes Allergies Reviewed: Yes Beta Blockers on Current Med List: Yes If Beta Blockers taken, Date/Time (Last Dose taken): 5-10 @ 8620 Anesthesia Results - Labs 12/12/17 01:38 12/12/17 01:38 - Imaging EKG: report reviewed (SINUS BRADYCARDIA RIGHT BUNDLE BRANCH BLOCK [120+ ms QRS DURATION, UPRIGHT V1, 40+ ms S IN I/aVL/V4/V5/V6] LEFT ANTERIOR FASCICULAR BLOCK [QRS AXIS <= -45, QR IN I, RS IN II]) Additional studies: CT: IMPRESSION: 1. CT findings are suggestive of acute cholecystitis, with cholelithiasis, gallbladder distention, and wall thickening of the gallbladder. Suggest clinical correlation and correlation with today's gallbladder ultrasound findings. 2. Suspected choledocholithiasis with mild common duct dilatation. Correlation with today's gallbladder ultrasound is also suggested. 3. 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 Further follow-up of this abnormality is as advised below. 4. Acute to subacute wedge compression fractures of T9 and L2, new from prior studies. Suggest further characterization with a follow-up thoracolumbar MRI. Anesthesia Exam Selected Entries 12/12/17 07:39 Temperature 98.1 F Pulse Rate 58 Respiratory Rate 15 Blood Pressure 137/61 O2 Sat by Pulse Oximetry 97 Oxygen Delivery Method Room Air Weight: 66kg NPO (# of Hours): 8 - HEENT Pupil (Motor): EOMI Mallampati: II Teeth: Missing Oral Opening: Greater than 3 - SHADOWGRAPH OPERATOR LOC: Oriented SHADOWGRAPH OPERATOR Motor: Normal RUE, Normal LUE, Normal RLE, Normal LLE, Normal Face SHADOWGRAPH OPERATOR Sensory: Normal: RUE, LUE, RLE, LLE, Face - Cardiac Rhythm: Regular Murmur: None - Pulmonary Breath Sounds: bilateral Clear Respiratory Effort: Symmetrical Anesthesia Assess/Plan ASA Score: 3 Modified [place] Scale for Level of Consciousness: Cooperative, oriented, and tranquil Anesthetic Plan: General Monitoring Plan: Standard Monitors Recovery Plan: PACU (agrees to GA)
[2017-12-12] MEDS: MetroNIDAZOLE 500 MG/100 ML 500 MG/100 ML BAG IVPB SCH ×3 (00:32→18:35)
[2017-12-12] MEDS: *HR* Heparin 5,000 UNIT/ML VIAL SQ SCH ×3 (00:35→22:02)
[2017-12-12 02:00] LABS: Basophils % 0.5 %; Eosinophils # 0.1 K/mcL (0.0-0.6); Eosinophils % 1.2 %; Hematocrit 29.5 % (35.3-44.9); Immature Granulocytes % 0.2 % (0-4); Lymphocytes # 1.6 K/mcL (0.6-4.6); Lymphocytes % 26.6 %; Mean Corpuscular HGB Conc 32.9 g/dL (31.6-35.5); Mean Corpuscular Hemoglobin 31.4 pg (28.0-33.3); Mean Corpuscular Volume 95.5 fL (83.0-100.0); Mean Platelet Volume 11.4 fL (9.4-12.4); Monocytes # 0.9 K/mcL (0.0-1.3); Monocytes % 14.4 %; Neutrophils # 3.4 K/mcL (1.6-8.9); Platelet Count 257 K/mcL (140-400); Red Blood Count 3.09 M/mcL (3.82-4.97); Red Cell Distribution Width 13.9 % (11.5-14.5); Segmented Neutrophils % 57.1 %
[2017-12-12 02:03] LABS: Hemoglobin 9.7 g/dL (11.5-15.4)
[2017-12-12 02:14] LABS: Alanine Aminotransferase 224 Units/L (7-52); Albumin 3.2 g/dL (3.5-5.7); Albumin/Globulin Ratio 1.2 (1.1-2.2); Alkaline Phosphatase 598 Units/L (34-104); Aspartate Amino Transferase 205 Units/L (13-39); BUN/Creatinine Ratio 22 (6-26); Blood Urea Nitrogen 13 mg/dL (8-23); Calcium 8.9 mg/dL (8.6-10.3); Carbon Dioxide 27 mEq/L (23-29); Chloride 108 mEq/L (98-107); Globulin 2.7 g/dL (2.4-3.5); Glucose 103 mg/dL (70-105); Magnesium 1.6 mg/dL (1.6-2.6); Osmolality,Calculated 290 (280-300); Phosphorous 3.3 mg/dL (2.7-4.5); Potassium 3.9 mEq/L (3.5-5.1); Sodium 140 mEq/L (136-145); Total Protein 5.9 g/dL (6.4-8.9); eGFR For African Americans > 60 (> 60); eGFR For Non-African Americans > 60 (> 60)
[2017-12-12 02:51] LABS: INR 1.2; Prothrombin Time 12.8 Seconds (9.4-12.1)
[2017-12-12 02:54] LABS: Activated Partial Thrombo Time 33.2 Seconds (26.0-36.0)
[2017-12-12] MEDS ORDERED: Acetaminophen 325 MG TABLET PO PRN (05:41)
[2017-12-12] MEDS ORDERED: Ketorolac 15 MG/ML VIAL IVP ONE (05:54)
[2017-12-12] MEDS ORDERED: Lidocaine -MPF 4% 5 ML AMPUL ONE (07:37)
[2017-12-12] MEDS ORDERED: Ondansetron 4 MG/2 ML VIAL ONE (07:37)
[2017-12-12] MEDS ORDERED: Dexamethasone 4 MG/ML VIAL ONE (07:37)
[2017-12-12] MEDS ORDERED: *HR* Succinylcholine 200 MG/10 ML VIAL IVP ONE (07:37)
[2017-12-12] MEDS ORDERED: Lidocaine -MPF 2% 2 ML VIAL ONE (07:37)
--- NOTE | 2017-12-12 07:37 | General Surgery Progress Note ---
<Noel Bello - Last Filed: 12/12/17 17:31> Date of Encounter: 12/12/17 Time of Encounter: 07:35 - Assessment and Plan (1) Acute cholecystitis Status: Acute Overall condition unchanged. Pain continues to be well tolerated. White blood cell count, though never leukocytotic, has reduced to 5.9k. Hgb down to 9.7 g/ dL from 12.3 g/dL. INR 1.2 this morning. Bili reduced from 2.8 to 2.0 this AM ; direct bili 2.4 yesterday. Transaminases & ALP comparably elevated vs prior. Recommendations: - control nausea and pain pending further evaluation - continue IV Cipro and Flagyl (day 2) - IVF at maintenance rate Plan: - ERCP performed this AM as below - NPO at midnight for planned lap cholecystectomy by Dr. Leeann Nguyen within next 24 hours - co-morbidity management and symptomatic management per hospitalist team RUQ U/S "The gallbladder is distended with shadowing gallstones and sludge. The gallbladder wall appears mildly thickened with trace pericholecystic fluid. The sonographic Hernandez sign is present. The common bile duct is dilated to 12 mm with echogenic foci seen within the common bile duct." CT-Abd/Pelv "CT findings are suggestive of acute cholecystitis, with cholelithiasis, gallbladder distention, and wall thickening of the gallbladder. Suggest clinical correlation and correlation with today's gallbladder ultrasound findings." ERCP: procedure was successfully completed today demonstrating a filling defect on cholangiogram. Choleliths and gallbladder sludge found in common bile duct. Remainder of biliary tree swept. CBD was flushed with saline. Temporary stent placed into the common bile duct and demonstrably patent; plan for repeat ERCP and 2 months for removal. Subjective Patient reports: no new complaints, pain is less, afebrile Narrative: Dr. Grijalva has seen patient; she has been NPO since midnight in preparation for ERCP which is planned around or after 9 AM today. Patient has no new concerns, was afebrile overnight, and pain is well- controlled. Patient's daughter's present; neither libertarian has any questions at this point in time. Objective Vital Signs - Last 8 Hours Temp Pulse Resp BP Pulse Ox 12/12/17 03:45 98.3 F 67 15 135/66 97 Intake and Output 12/11/17 12/11/17 12/12/17 15:59 23:59 07:59 Intake Total 300 / 300 300 / 300 Output Total 200 / 200 575 / 575 Balance 100 / 100 -275 / -275 Intake: IV Fluids 300 / 300 300 / 300 Cipro Premix 400 MG/200 ML 400 200 / 200 200 / 200 mg In 200 ml @ 200 mls/hr IVPB Q12HR [facility] Rx#:[id number] Flagyl Premix 500 MG/100 ML 500 100 / 100 100 / 100 mg In 100 ml @ 100 mls/hr IVPB Q8HR [facility] Rx#:[id number] Oral 0 / 0 0 / 0 Output: Urine 200 / 200 575 / 575 Other: Meal NPO Blood Glucose* 99 Stable exam from 12/11/17 VITAL SIGNS: Reviewed. See [facility] GENERAL: comfortably supine, conversational, NAD HEENT: Normocephalic, PER, EOMi, oropharynx pink/moist, no JVD noted. Stable scleral icterus. CV: b/l rad pulses 2+, RRR, no murmurs or gallops, no JVD RESPIRATORY: CTAB without wheezes, rales, or rhonchi ABD: soft, still operator helper to RUQ (otherwise non-tender), no rebound/guarding/ rigidity, no peritoneal signs EXTREMITY: grossly normal motor function, no pedal edema NEUROLOGIC EXAM: AOx3, obeys commands, no speech deficits. PSYCHIATRIC: normal mood and affect SKIN: no gross lesions, rashes, or skin changes - Labs 12/12/17 01:38 12/12/17 01:38 Diabetes panel 12/12/17 Range/Units 01:38 Sodium 140 (136-145) mEq/L Potassium 3.9 (3.5-5.1) mEq/L Chloride 108 H (98-107) mEq/L Carbon Dioxide 27 (23-29) mEq/L BUN 13 (8-23) mg/dL Creatinine 0.59 L (0.60-1.20) mg/dL Glucose 103 (70-105) mg/dL Calcium 8.9 (8.6-10.3) mg/dL AST 205 H (13-39) Units/L ALT 224 H (7-52) Units/L Alkaline Phosphatase 598 H (34-104) Units/L Albumin 3.2 L (3.5-5.7) g/dL Calcium panel 12/12/17 Range/Units 01:38 Calcium 8.9 (8.6-10.3) mg/dL Phosphorus 3.3 (2.7-4.5) mg/dL Albumin 3.2 L (3.5-5.7) g/dL Pituitary panel 12/12/17 Range/Units 01:38 Sodium 140 (136-145) mEq/L Potassium 3.9 (3.5-5.1) mEq/L Chloride 108 H (98-107) mEq/L Carbon Dioxide 27 (23-29) mEq/L BUN 13 (8-23) mg/dL Creatinine 0.59 L (0.60-1.20) mg/dL Glucose 103 (70-105) mg/dL Calcium 8.9 (8.6-10.3) mg/dL Adrenal panel 12/12/17 Range/Units 01:38 Sodium 140 (136-145) mEq/L Potassium 3.9 (3.5-5.1) mEq/L Chloride 108 H (98-107) mEq/L Carbon Dioxide 27 (23-29) mEq/L BUN 13 (8-23) mg/dL Creatinine 0.59 L (0.60-1.20) mg/dL Glucose 103 (70-105) mg/dL Calcium 8.9 (8.6-10.3) mg/dL Total Bilirubin 2.0 H (0.3-1.0) mg/dL AST 205 H (13-39) Units/L ALT 224 H (7-52) Units/L Alkaline Phosphatase 598 H (34-104) Units/L Albumin 3.2 L (3.5-5.7) g/dL Consult Discharge Plan - Plan Referrals: Gian Juarez DO [Primary Care Provider] - Prescriptions: HYDROcodone/Acet 5/325 mg [[place] 5-325 mg] 1 tab PO Q6H PRN 7 Days #28 tab PRN Reason: Moderate Pain Ondansetron ODT [Zofran ODT] 4 mg PO Q6H #15 tab.chemo <Jose Alfredo Díaz - Last Filed: 12/15/17 07:32> Date of Encounter: 12/12/17 Objective Vital Signs - Last 8 Hours Temp Pulse Resp BP Pulse Ox 12/12/17 14:57 97.7 F 60 15 149/63 99 12/12/17 11:07 97.7 F 64 16 137/69 12/12/17 10:43 98.6 F 64 16 168/72 98 12/12/17 10:33 67 18 168/78 99 12/12/17 10:23 75 16 163/58 100 12/12/17 10:13 98.0 F 80 18 149/62 99 12/12/17 09:18 98.6 F 62 18 153/72 97 Intake and Output 12/12/17 12/12/17 12/12/17 07:59 15:59 23:59 Intake Total 1300 / 1300 0 / 0 Output Total 575 / 575 600 / 600 Balance 725 / 725 -600 / -600 Intake: IV Fluids 1300 / 1300 0.9 % Sodium Chloride 1,000 ML 1000 / 1000 @ 70 mls/hr IVC .[id number] [facility] Rx #:[id number] Cipro Premix 400 MG/200 ML 400 200 / 200 mg In 200 ml @ 200 mls/hr IVPB Q12HR [facility] Rx#:[id number] Flagyl Premix 500 MG/100 ML 500 100 / 100 mg In 100 ml @ 100 mls/hr IVPB Q8HR [facility] Rx#:[id number] Oral 0 / 0 0 / 0 Output: Urine 575 / 575 600 / 600 Other: Meal NPO Percent of Meal Consumed 0% Stool Size Moderate Stool Consistency liquid Stool Color Brown Green # Voids 1 # Bowel Movements 0 1 Blood Glucose* 99 176 - Labs 12/13/17 04:20 12/13/17 04:20 Diabetes panel 12/12/17 Range/Units 01:38 Sodium 140 (136-145) mEq/L Potassium 3.9 (3.5-5.1) mEq/L Chloride 108 H (98-107) mEq/L Carbon Dioxide 27 (23-29) mEq/L BUN 13 (8-23) mg/dL Creatinine 0.59 L (0.60-1.20) mg/dL Glucose 103 (70-105) mg/dL Calcium 8.9 (8.6-10.3) mg/dL AST 205 H (13-39) Units/L ALT 224 H (7-52) Units/L Alkaline Phosphatase 598 H (34-104) Units/L Albumin 3.2 L (3.5-5.7) g/dL Calcium panel 12/12/17 Range/Units 01:38 Calcium 8.9 (8.6-10.3) mg/dL Phosphorus 3.3 (2.7-4.5) mg/dL Albumin 3.2 L (3.5-5.7) g/dL Pituitary panel 12/12/17 Range/Units 01:38 Sodium 140 (136-145) mEq/L Potassium 3.9 (3.5-5.1) mEq/L Chloride 108 H (98-107) mEq/L Carbon Dioxide 27 (23-29) mEq/L BUN 13 (8-23) mg/dL Creatinine 0.59 L (0.60-1.20) mg/dL Glucose 103 (70-105) mg/dL Calcium 8.9 (8.6-10.3) mg/dL Adrenal panel 12/12/17 Range/Units 01:38 Sodium 140 (136-145) mEq/L Potassium 3.9 (3.5-5.1) mEq/L Chloride 108 H (98-107) mEq/L Carbon Dioxide 27 (23-29) mEq/L BUN 13 (8-23) mg/dL Creatinine 0.59 L (0.60-1.20) mg/dL Glucose 103 (70-105) mg/dL Calcium 8.9 (8.6-10.3) mg/dL Total Bilirubin 2.0 H (0.3-1.0) mg/dL AST 205 H (13-39) Units/L ALT 224 H (7-52) Units/L Alkaline Phosphatase 598 H (34-104) Units/L Albumin 3.2 L (3.5-5.7) g/dL - Attending Attestation I examined this patient and my medical decision-making was reviewed with the Resident Physician. I agree with the documented findings, disposition and treatment plan as described except to the extent set forth below. \\ Review the above assessment and evaluation agree with the above plan. ERCP was successful. The patient is willing to undergo a laparoscopic cholecystectomy due to her current visit. My colleague Dr. Nguyen has agreed to perform the surgical procedure tomorrow. The patient is in agreement as well.
[2017-12-12] MEDS ORDERED: *HR* Propofol 200 MG/20 ML VIAL IVP ONE (07:38)
[2017-12-12] MEDS ORDERED: *HR* FentaNYL (PF) 100 MCG/2 ML VIAL ONE (07:38)
[2017-12-12] MEDS ORDERED: OXYCODONE Oral CONC 10 MG/0.5 ML ORAL.SYG SL PRN (08:11)
--- NOTE | 2017-12-12 08:12 | Internal Med Progress Note ---
Date of Encounter: 12/12/17 Time of Encounter: 08:10 - Assessment and plan (1) Acute cholecystitis Current Visit: Yes Status: Acute Assessment and plan: Continue IV fluids Right-sided persistent pain. Ultrasound/CT scan/clinical picture consistent with: Acute cholecystitis Continue ciprofloxacin/Flagyl Pain control, switch to sublingual oxycodone. Avoid Tylenol due to elevated liver enzymes. GI and Surgery following Planned for ERCP today Recheck H&H later today (2) GERD (gastroesophageal reflux disease) Current Visit: No Status: Chronic Assessment and plan: Patient does have a gastroesophageal reflux disease. We will start patient on PPI Qualifiers: Esophagitis presence: without esophagitis Qualified Code(s): K21.9 - Gastro -esophageal reflux disease without esophagitis (3) HLD (hyperlipidemia) Current Visit: No Status: Chronic Assessment and plan: Hold statin due to liver enzymes Qualifiers: Hyperlipidemia type: unspecified Qualified Code(s): E78.5 - Hyperlipidemia , unspecified (4) HTN (hypertension) Current Visit: No Status: Chronic Assessment and plan: Patient is known to have a hypertension. We will resume home medication. We will monitor closely patient's blood pressure. Qualifiers: Hypertension type: essential hypertension Qualified Code(s): I10 - Essential (primary) hypertension (5) DVT prophylaxis Current Visit: No Status: Acute Assessment and plan: Heparin SQ Medical decision making: This patient has a moderate to severe risk of worsening in spite of being on appropriate medication due to the underlying complex comorbid condition. - Time Spent With Patient Total time spent is greater than 50% in coordination of care (as documented) at patient's floor/unit and/or counseling patient: - Subjective Interval history: No acute events. Planned for ERCP today. Abdominal pain is 3/10 with pain medication. - Constitutional Vitals: Temp Pulse Resp BP Pulse Ox 98.1 F 58 15 137/61 97 12/12/17 07:39 12/12/17 07:39 12/12/17 07:39 12/12/17 07:39 12/12/17 07:39 General appearance: Present: A&O X 3, pleasant, no acute distress - Head Head exam: Present: atraumatic, normocephalic - Eye Eye exam: Present: PERRL, conjuntiva pink, sclera anicteric Pupils: Present: PERRL - Neck Neck exam general surgery: Present: supple, trachea midline. Absent: lymphadenopathy - Respiratory Respiratory exam: Present: CTAB. Absent: accessory muscle use, rales, rhonchi, wheezes - Cardiovascular Cardiovascular exam: Present: RRR, +S1, +S2. Absent: diastolic murmur, gallop, rubs, systolic murmur - GI/Abdominal GI/Abdominal exam: Present: normal bowel sounds, soft, tenderness (Right upper quadrant), no peritoneal signs. Absent: distended - Extremities Exam Extremities exam: Present: warm, radial pulses palpable and symmetrical. Absent : calf tenderness, cyanotic, pedal edema - Neurological Exam Neurological exam: Present: CN II-XII intact, oriented X3, no focal deficits. Absent: pronater drift, facial droop, speech deficit - Skin Skin exam: Present: dry, intact Internal Medicine: Result - Labs CBC & Chem 7: 12/12/17 01:38 12/12/17 01:38 Labs: Short CBC 12/12/17 Range/Units 01:38 WBC 5.9 (4.3-11.1) K/mcL Hgb 9.7 L D (11.5-15.4) g/dL Hct 29.5 L (35.3-44.9) % Plt Count 257 (140-400) K/mcL Neutrophils # 3.4 (1.6-8.9) K/mcL BMP 12/12/17 01:38 Sodium 140 Potassium 3.9 Chloride 108 H Carbon Dioxide 27 BUN 13 Creatinine 0.59 L Glucose 103 Calcium 8.9 Cardiac Enzymes 12/11/17 12/11/17 12/12/17 Range/Units 14:51 21:55 01:38 Troponin I < 0.03 0.03 < 0.03 (< 0.04) ng/mL Liver Function 12/11/17 12/12/17 Range/Units 14:51 01:38 Total Bilirubin 2.0 H (0.3-1.0) mg/dL Direct Bilirubin 2.4 H (0.0-0.2) mg/dL AST 205 H (13-39) Units/L ALT 224 H (7-52) Units/L Alkaline Phosphatase 598 H (34-104) Units/L Albumin 3.2 L (3.5-5.7) g/dL - ABG Interpretation ABG results: PT/INR, D-dimer PT 12.8 Seconds (9.4-12.1) H 12/12/17 01:38 Consult Discharge Plan - Plan Referrals: Gian Juarez DO [Primary Care Provider] -
[2017-12-12] MEDS ORDERED: EPHEDrine 50 MG/ML VIAL ONE (08:37)
[2017-12-12] MEDS ORDERED: *HR* Promethazine 25 MG/ML VIAL IVP PRN (09:24)
[2017-12-12] MEDS ORDERED: Indomethacin 50 MG SUPP.RECT RC ONE (09:59)
--- NOTE | 2017-12-12 10:43 | Anesthesia Evaluation Post Op ---
Date of Encounter: 12/12/17 Time of Encounter: 10:45 - Vital Signs Vital Signs: Vital Signs/O2 Sat/Glucose, Most Current Temp Pulse Resp BP Pulse Ox 12/12/17 10:33 67 18 168/78 99 12/12/17 10:23 75 16 163/58 100 12/12/17 10:13 98.0 F 80 18 149/62 99 12/12/17 09:18 98.6 F 62 18 153/72 97 12/12/17 07:39 98.1 F 58 15 137/61 97 - Lungs Lungs: Clear Ascult./Percussion - Airway Airway: Non-obstructed - Cardiovascular Regular Rate - Mental Status Mental Status: Alert & Oriented, Answers Appropriately - Pain Pain Scale: 0 - Nausea Vomiting Nausea Vomiting: Not Present - Hydration Hydration: Ice chips - Discharge PostOp Status: Transfer Patient to floor
--- NOTE | 2017-12-12 11:21 | Gastroenterology Consult Note ---
<RoxDonis Perkins - Last Filed: 12/12/17 11:19> Date of Encounter: 12/12/17 Time of Encounter: 10:50 - Assessment and plan (1) Choledocholithiasis Current Visit: Yes Status: Acute Assessment and plan: CT A/P suggestive of acute cholecystitis, with cholelithiasis, gallbladder distention, and wall thickening of the gallbladder, suspected choledocholithiasis with mild common duct dilatation. Today TB 2, AST 205, ALT 224. Plan for ERCP today with possible stent placement. (2) Acute cholecystitis Current Visit: Yes Status: Acute Assessment and plan: Management per General Surgery. - Time Spent With Patient Total time spent is greater than 50% in coordination of care (as documented) at patient's floor/unit and/or counseling patient: GI History of Present Illness - Data of Consult Patient: new to practice Consult date: 12/12/17 Requesting Physician: Florentino Roland - Consult Narrative Reason for consult: CBD stone History of present illness: Ms. Lozano is a 82 year old female with PMHx of HTN, GERD, breast cancer s/p mastectomy 25 years ago who presented to the ED with right sided abdominal pain for 48 hours prior to admission. GB US findings consistent with acute cholecystitis, choledocholithiasis is present with dilation of the common bile duct up to 1.2 cm, there is at least mild intrahepatic biliary dilation. CT A/P suggestive of acute cholecystitis, with cholelithiasis, gallbladder distention, and wall thickening of the gallbladder, suspected choledocholithiasis with mild common duct dilatation. She denies fever, chills, chest pain, shortness of breath, vomiting, diarrhea, melena, or hematochezia. Procedures: Colonoscopy 08/10/2007 Dr. Garcia: multiple hyperplastic polyps NSAIDs: ASA Anticoagulation: None Past Med Surg Social Fam HX - Past Medical History Medical history: cancer, GERD, hypertension, TIA, other Psychiatric history: anxiety - Past Surgical History Surgical History: appendectomy, breast surgery (Right radical mastectomy for breast cancer), cancer surgery, orthopedic, other (Reduction internal fixation left elbow. Removal of hardware.) - Social History Smoking Status: Never smoker Smokeless Tobacco Status: No Alcohol use: none Drug use: none - Family History Father Hx Family Neurologic Disorders: Yes Sister Hx Family Cancer: Yes (colon) Brother Hx Family Cardiac Disorders: Yes - Gastrointestinal Gastrointestinal: Present: as per HPI - Constitutional Constitutional: as per HPI - EENT Eyes: as per HPI Ears: Present: as per HPI Nose, mouth and throat: Present: as per HPI - Cardiovascular Cardiovascular ROS: Present: as per HPI - Respiratory Respiratory IM: Present: as per HPI - Genitourinary Genitourinary: Absent: change in color, Urinary frequency - Neurological ROS Neurological GI: Present: as per HPI - Hematologic/Lymphatic Hematologic/Lymphatic pediatric: Present: as per HPI - Musculoskeletal Musculoskeletal ROS GI: Present: as per HPI - Integumentary Integumentary GI: Present: as per HPI - Psychiatric ROS Psychiatric GI: Present: as per HPI - Endocrine Endocrine IM: Present: as per HPI - Constitutional Vitals: Temp Pulse Resp BP Pulse Ox 97.7 F 64 16 137/69 98 12/12/17 11:07 12/12/17 11:07 12/12/17 11:07 12/12/17 11:07 12/12/17 10:43 General appearance: Present: cooperative, A&O X 3, no acute distress, answers questions appropriately - Head Head exam: Present: atraumatic, normocephalic - Eye Eye exam: Present: normal appearance, sclera anicteric - ENT ENT exam: Present: mucous membranes dry - Neck Neck exam general surgery: Present: normal inspection, trachea midline - Respiratory Respiratory exam: Present: CTAB. Absent: rales, rhonchi - Cardiovascular Cardiovascular exam: Present: RRR, +S1, +S2 - GI/Abdominal GI/Abdominal exam: Present: soft, no peritoneal signs. Absent: distended, firm , guarding, tenderness - Rectal Rectal exam: Present: deferred - Extremities Exam Extremities exam: Present: warm - Neurological Exam Neurological exam: Present: no focal deficits - Psychiatric Psychiatric exam: Present: normal affect, normal mood - Skin Skin exam: Present: dry, intact, normal color, warm Results - Labs CBC & Chem 7: 12/12/17 01:38 12/12/17 01:38 Labs: Last Result Calcium 8.9 mg/dL (8.6-10.3) 12/12/17 01:38 Troponin I < 0.03 ng/mL (< 0.04) 12/12/17 01:38 Entire Visit Hgb 9.7 g/dL (11.5-15.4) L D 12/12/17 01:38 Hct 29.5 % (35.3-44.9) L 12/12/17 01:38 PT 12.8 Seconds (9.4-12.1) H 12/12/17 01:38 Total Bilirubin 2.0 mg/dL (0.3-1.0) H 12/12/17 01:38 AST 205 Units/L (13-39) H 12/12/17 01:38 ALT 224 Units/L (7-52) H 12/12/17 01:38 Lipase 61 Units/L (11-82) 12/11/17 08:51 - ABG ABG results: PT/INR, D-dimer PT 12.8 Seconds (9.4-12.1) H 12/12/17 01:38 - Impressions Impressions Cath/Invasive Procedure 12/12/17 00:00 IMPRESSION: Successful deployment of common bile duct stent. Please refer to the procedure report for further details. D/ / Gasper Ricardo MD / Gasper Ricardo MD Interpreting Provider: Gasper Ricardo MD Consult Discharge Plan - Plan Referrals: Gian Juarez DO [Primary Care Provider] - <Yuly Grijalva - Last Filed: 12/12/17 12:46> Date of Encounter: 12/12/17 Time of Encounter: 09:00 - Time Spent With Patient Total time spent is greater than 50% in coordination of care (as documented) at patient's floor/unit and/or counseling patient: GI History of Present Illness - Data of Consult Requesting Physician: Florentino Roland - Consult Narrative History of present illness: Ms. Lozano is a 82 year old female - Constitutional Vitals: Temp Pulse Resp BP Pulse Ox 97.7 F 64 16 137/69 98 12/12/17 11:07 12/12/17 11:07 12/12/17 11:07 12/12/17 11:07 12/12/17 10:43 Results - Labs CBC & Chem 7: 12/12/17 01:38 12/12/17 01:38 Labs: Last Result Calcium 8.9 mg/dL (8.6-10.3) 12/12/17 01:38 Troponin I < 0.03 ng/mL (< 0.04) 12/12/17 01:38 Entire Visit Hgb 9.7 g/dL (11.5-15.4) L D 12/12/17 01:38 Hct 29.5 % (35.3-44.9) L 12/12/17 01:38 PT 12.8 Seconds (9.4-12.1) H 12/12/17 01:38 Total Bilirubin 2.0 mg/dL (0.3-1.0) H 12/12/17 01:38 AST 205 Units/L (13-39) H 12/12/17 01:38 ALT 224 Units/L (7-52) H 12/12/17 01:38 Lipase 61 Units/L (11-82) 12/11/17 08:51 - ABG ABG results: PT/INR, D-dimer PT 12.8 Seconds (9.4-12.1) H 12/12/17 01:38 - Impressions Impressions Cath/Invasive Procedure 12/12/17 00:00 IMPRESSION: Successful deployment of common bile duct stent. Please refer to the procedure report for further details. D/ / Gasper Ricardo MD / Gasper Ricardo MD Interpreting Provider: Gasper Ricardo MD - Attending Attestation I have personally performed a face to face evaluation on this patient. I have reviewed and agree with the care plan. History and Exam by me shows: Patient seen denies any fever and chills. Does has mild tenderness in the right upper quadrant. Assessment: Patient with the cholecystitis and choledocholithiasis. Recommendation: Plan is for ERCP today. Procedures including risks explained to the patient
[2017-12-12] MEDS: 0.9 % Sodium Chloride 1,000 ML IVC SCH ×2 (15:06→18:22)
[2017-12-12] MEDS: Aspirin Enteric Coated 81 MG Tablet PO SCH (15:08)
[2017-12-12] MEDS: Isosorbide MONOnitrate (24 HR) 30 MG TAB.ER.24H PO SCH (15:08)
[2017-12-12] MEDS: Metoprolol XL (24 HR) Succ 50 MG TAB.ER.24H PO SCH (22:02)
[2017-12-13] MEDS: MetroNIDAZOLE 500 MG/100 ML 500 MG/100 ML BAG IVPB SCH ×4 (00:01→23:30)
[2017-12-13] MEDS: *HR* Heparin 5,000 UNIT/ML VIAL SQ SCH ×4 (00:02→23:31)
[2017-12-13 04:57] LABS: Basophils % 0.3 %; Eosinophils % 0.5 %; Hemoglobin 10.1 g/dL (11.5-15.4); Immature Granulocytes % 0.5 % (0-4); Lymphocytes % 25.6 %; Mean Corpuscular HGB Conc 33.7 g/dL (31.6-35.5); Mean Corpuscular Hemoglobin 32.2 pg (28.0-33.3); Mean Corpuscular Volume 95.5 fL (83.0-100.0); Mean Platelet Volume 11.9 fL (9.4-12.4); Monocytes # 0.8 K/mcL (0.0-1.3); Monocytes % 10.5 %; Platelet Count 263 K/mcL (140-400); Red Blood Count 3.14 M/mcL (3.82-4.97); Red Cell Distribution Width 13.7 % (11.5-14.5); Segmented Neutrophils % 62.6 %
[2017-12-13 05:07] LABS: Albumin 3.2 g/dL (3.5-5.7); Albumin/Globulin Ratio 1.2 (1.1-2.2); Bilirubin,Direct 0.3 mg/dL (0.0-0.2); Bilirubin,Indirect 0.6 mg/dL (0.0-1.2); Bilirubin,Total 0.9 mg/dL (0.3-1.0); Globulin 2.7 g/dL (2.4-3.5); Total Protein 5.9 g/dL (6.4-8.9)
[2017-12-13 05:08] LABS: BUN/Creatinine Ratio 27 (6-26); Blood Urea Nitrogen 12 mg/dL (8-23); Carbon Dioxide 25 mEq/L (23-29); Chloride 109 mEq/L (98-107); Glucose 118 mg/dL (70-105); Osmolality,Calculated 293 (280-300); Potassium 3.8 mEq/L (3.5-5.1); Sodium 141 mEq/L (136-145); eGFR For African Americans > 60 (> 60); eGFR For Non-African Americans > 60 (> 60)
[2017-12-13] MEDS: Isosorbide MONOnitrate (24 HR) 30 MG TAB.ER.24H PO SCH (07:20)
[2017-12-13] MEDS: Aspirin Enteric Coated 81 MG Tablet PO SCH (07:23)
--- NOTE | 2017-12-13 08:22 | Anesthesia Evaluation PreOp ---
Date of Encounter: 12/13/17 Time of Encounter: 08:20 - Past History Planned Operation: Lap Cholecystectomy Cardiac History: HTN Pulmonary History: Denies Any Significant HX JAVA LEAD ARCHITECT History: TIA Other Medical History: GERD Anesthesia History: No Prior Anesthetic Complications, Past Anesthesia ( Mastectomy ERCP) : No Alcohol Use: none Drug use: none Medications and Allergies Aspirin [Lo-Dose Aspirin EC] 81 mg PO DAILY 12/11/17 [History] Cholecalciferol (D-3) [Vitamin D] 1,000 unit PO DAILY 12/11/17 [History] Docusate [Colace] 100 mg PO BID PRN 12/11/17 [History] Famotidine [Pepcid] 20 mg PO BID PRN 12/11/17 [History] Isosorbide MONOnitrate (24 HR) [Imdur] 30 mg PO DAILY 12/11/17 [History] Metoprolol Succinate [Toprol Xl] 25 mg PO HS 12/11/17 [History] Vitamin E Acetate [Vitamin E] 400 unit PO DAILY 12/11/17 [History] 3 Allergy/AdvReac Type Severity Reaction Status Date / Time rosuvastatin [From Crestor] AdvReac Cramping Verified 12/11/17 13:47 of the Muscles Sknetos-Zni-Zzo Reductase AdvReac Cramping Verified 12/11/17 13:47 Inhibitor of the [Statins] Muscles - Meds/Allergy Pre-op Review Medications Reviewed: Yes Allergies Reviewed: Yes Beta Blockers on Current Med List: No Anesthesia Results - Labs 12/13/17 04:20 12/13/17 04:20 Laboratory Tests 12/12/17 12/13/17 12/13/17 01:38 04:20 04:20 Hgb 10.1 L Hct 30.0 L Plt Count 263 PT 12.8 H INR 1.2 APTT 33.2 Sodium 141 Potassium 3.8 BUN 12 Creatinine 0.45 L - Imaging EKG: report reviewed (SB Rt BBB) Anesthesia Exam Vital Signs/O2 Sat/Glucose, Most Current Temp Pulse Resp BP Pulse Ox 12/13/17 06:47 98.0 F 59 15 158/84 98 Height: 5'3 Weight: 140 lbs NPO (# of Hours): MN Pain Scale: 0 - HEENT Pupil (Motor): Pupils equal, EOMI Mallampati: II Teeth: Normal Oral Opening: Greater than 3 - JAVA LEAD ARCHITECT LOC: Oriented J[employer] LEAD ARCHITECT Motor: Normal RUE, Normal LUE, Normal RLE, Normal LLE, Normal Face [employer] LEAD ARCHITECT Sensory: Normal: RUE, LUE, RLE, LLE, Face - Cardiac Rhythm: Regular Murmur: None JVD: No Carotid Bruit: No - Pulmonary Breath Sounds: bilateral Clear Respiratory Effort: Symmetrical Anesthesia Assess/Plan ASA Score: 3 (HTN TIA Gerd) Anesthetic Plan: General Monitoring Plan: Standard Monitors Recovery Plan: PACU (Discussed GA, agrees to proceed)
[2017-12-13] MEDS ORDERED: Acetaminophen IV 1,000 MG/100 ML INFUS..BTL ONE (08:32)
[2017-12-13] MEDS ORDERED: Famotidine 20 MG/2 ML VIAL ONE (08:33)
[2017-12-13] MEDS ORDERED: Isovue-300 50 ML VIAL IVP ONE (08:39)
[2017-12-13] MEDS ORDERED: EPHEDrine 50 MG/ML VIAL ONE (09:02)
[2017-12-13] MEDS ORDERED: *HR* Promethazine 25 MG/ML VIAL IVP PRN ×2 (09:10→11:10)
[2017-12-13] MEDS ORDERED: *HR* Labetalol 20 MG/4 ML SYRINGE IVP PRN (09:10)
[2017-12-13] MEDS ORDERED: Ondansetron 4 MG/2 ML VIAL IVP ONE (09:10)
[2017-12-13] MEDS ORDERED: *HR* FentaNYL (PF) 100 MCG/2 ML VIAL IVP PRN (09:10)
[2017-12-13] MEDS ORDERED: *HR* OxyCODONE Immed Rel 5 MG TABLET PO PRN ×2 (09:10→11:10)
[2017-12-13] MEDS ORDERED: MORPHINE SUL Oral CONC 10 MG/0.5 ML ORAL.SYG SL PRN (09:10)
[2017-12-13] MEDS ORDERED: Neostigmine Methylsulfate 3 MG/3 ML SYRINGE ONE (09:19)
[2017-12-13] MEDS ORDERED: *HR* FentaNYL (PF) 100 MCG/2 ML VIAL ONE (09:20)
[2017-12-13] MEDS ORDERED: *HR* Rocuronium Bromide 50 MG/5 ML VIAL ONE (09:20)
[2017-12-13] MEDS ORDERED: Lidocaine -MPF 4% 5 ML AMPUL ONE (09:20)
[2017-12-13] MEDS ORDERED: *HR* Midazolam HCl 2 MG/2 ML VIAL ONE (09:20)
[2017-12-13] MEDS ORDERED: *HR* Succinylcholine 200 MG/10 ML VIAL IVP ONE (09:20)
[2017-12-13] MEDS ORDERED: Dexamethasone 4 MG/ML VIAL ONE (09:20)
[2017-12-13] MEDS ORDERED: *HR* Propofol 200 MG/20 ML VIAL IVP ONE (09:20)
[2017-12-13] MEDS ORDERED: Ondansetron 4 MG/2 ML VIAL ONE (09:20)
--- NOTE | 2017-12-13 10:37 | Anesthesia Evaluation Post Op ---
Date of Encounter: 12/13/17 Time of Encounter: 10:35 - Vital Signs Vital Signs: Vital Signs/O2 Sat/Glucose, Most Current Temp Pulse Resp BP Pulse Ox 12/13/17 10:30 48 12 145/62 98 12/13/17 10:20 98.2 F 51 12 139/58 99 12/13/17 10:10 53 12 149/62 94 12/13/17 10:00 55 12 156/63 96 12/13/17 09:50 97.4 F L 58 12 158/82 96 12/13/17 06:47 98.0 F 59 15 158/84 98 - Lungs Lungs: Clear Ascult./Percussion - Airway Airway: Non-obstructed - Cardiovascular Regular Rate - Mental Status Mental Status: Alert & Oriented, Answers Appropriately - Pain Pain Scale: 0 - Nausea Vomiting Nausea Vomiting: Not Present - Hydration Hydration: Ice chips - Discharge PostOp Status: Transfer Patient to floor
[2017-12-13] MEDS ORDERED: Naloxone 0.4 MG/ML INJ IVP PRN (11:10)
[2017-12-13] MEDS: OXYCODONE Oral CONC 10 MG/0.5 ML ORAL.SYG SL PRN (11:35)
[2017-12-13] MEDS: 0.9 % Sodium Chloride 1,000 ML IVC SCH (12:03)
[2017-12-13] MEDS ORDERED: Ondansetron 4 MG/2 ML VIAL IVP PRN (12:49)
--- NOTE | 2017-12-13 13:00 | Internal Med Progress Note ---
Date of Encounter: 12/13/17 Time of Encounter: 12:57 - Assessment and plan (1) Acute cholecystitis Current Visit: Yes Status: Acute Assessment and plan: Status-post lap cholecystectomy POD #0 Doing well. Continue Roxycodone for pain control Cipro/Flagyl Zofran/phenergan prn n/v GI and Surgery following, recommendations appreciated. Planned for ERCP today Recheck H&H later today (2) GERD (gastroesophageal reflux disease) Current Visit: No Status: Chronic Assessment and plan: Continue ppi Qualifiers: Esophagitis presence: without esophagitis Qualified Code(s): K21.9 - Gastro -esophageal reflux disease without esophagitis (3) HLD (hyperlipidemia) Current Visit: No Status: Chronic Assessment and plan: Hold statin due to liver enzymes Qualifiers: Hyperlipidemia type: unspecified Qualified Code(s): E78.5 - Hyperlipidemia , unspecified (4) HTN (hypertension) Current Visit: No Status: Chronic Assessment and plan: Patient is known to have a hypertension. NPO, resume PO meds when tolerates PO. Normotensive currently Qualifiers: Hypertension type: essential hypertension Qualified Code(s): I10 - Essential (primary) hypertension (5) DVT prophylaxis Current Visit: No Status: Acute Assessment and plan: Heparin SQ Medical decision making: This patient has a moderate to severe risk of worsening in spite of being on appropriate medication due to the underlying complex comorbid condition. - Time Spent With Patient Total time spent is greater than 50% in coordination of care (as documented) at patient's floor/unit and/or counseling patient: - Subjective Interval history: Patient has returned from lap cholecystectomy today, doing well. States pain controlled, at 7/10. Had some nausea that improves with medication. Denies fevers/chills, diarrhea, chest pain. - Constitutional Vitals: Temp Pulse Resp BP Pulse Ox 97.6 F 56 16 129/67 96 12/13/17 12:00 12/13/17 12:00 12/13/17 12:00 12/13/17 12:00 12/13/17 12:00 General appearance: Present: A&O X 3, pleasant, no acute distress - Head Head exam: Present: atraumatic, normocephalic - Eye Eye exam: Present: PERRL, conjuntiva pink, sclera anicteric Pupils: Present: PERRL - Neck Neck exam general surgery: Present: supple, trachea midline. Absent: lymphadenopathy - Respiratory Respiratory exam: Present: CTAB. Absent: accessory muscle use, rales, rhonchi, wheezes - Cardiovascular Cardiovascular exam: Present: RRR, +S1, +S2. Absent: diastolic murmur, gallop, rubs, systolic murmur - GI/Abdominal GI/Abdominal exam: Present: normal bowel sounds, soft, tenderness, no peritoneal signs. Absent: distended - Extremities Exam Extremities exam: Present: warm, radial pulses palpable and symmetrical. Absent : calf tenderness, cyanotic, pedal edema - Neurological Exam Neurological exam: Present: CN II-XII intact, oriented X3, no focal deficits. Absent: pronater drift, facial droop, speech deficit - Skin Skin exam: Present: dry, intact Internal Medicine: Result - Labs CBC & Chem 7: 12/13/17 04:20 12/13/17 04:20 Labs: Short CBC 12/13/17 Range/Units 04:20 WBC 8.0 (4.3-11.1) K/mcL Hgb 10.1 L (11.5-15.4) g/dL Hct 30.0 L (35.3-44.9) % Plt Count 263 (140-400) K/mcL Neutrophils # 5.0 (1.6-8.9) K/mcL BMP 12/13/17 04:20 Sodium 141 Potassium 3.8 Chloride 109 H Carbon Dioxide 25 BUN 12 Creatinine 0.45 L Glucose 118 H Calcium 9.0 Liver Function 12/13/17 Range/Units 04:20 Total Bilirubin 0.9 (0.3-1.0) mg/dL Direct Bilirubin 0.3 H (0.0-0.2) mg/dL AST 84 H (13-39) Units/L ALT 152 H (7-52) Units/L Alkaline Phosphatase 526 H (34-104) Units/L Albumin 3.2 L (3.5-5.7) g/dL - ABG Interpretation ABG results: PT/INR, D-dimer PT 12.8 Seconds (9.4-12.1) H 12/12/17 01:38 - Impressions Impressions Cholangiogram,Operative 12/13/17 00:00 IMPRESSION: Intraprocedural fluoroscopic spot images as above. See separate procedure report for more information. D/ / Donis Townsend MD / Donis Townsend MD Interpreting Provider: Donis Townsend MD - VTE Documentation of Mechanical Device: Intermittent pneumatic compression device Consult Discharge Plan - Plan Referrals: Gian Juarez DO [Primary Care Provider] -
[2017-12-13] MEDS ORDERED: Metoprolol XL (24 HR) Succ 50 MG TAB.ER.24H PO SCH (21:00)
[2017-12-13] MEDS: Famotidine 20 MG TABLET PO PRN (23:31)
[2017-12-14] MEDS: 0.9 % Sodium Chloride 1,000 ML IVC SCH (03:36)
[2017-12-14] MEDS: OXYCODONE Oral CONC 10 MG/0.5 ML ORAL.SYG SL PRN ×2 (03:37→10:53)
[2017-12-14] MEDS: *HR* Heparin 5,000 UNIT/ML VIAL SQ SCH (07:37)
[2017-12-14] MEDS: MetroNIDAZOLE 500 MG/100 ML 500 MG/100 ML BAG IVPB SCH (07:38)
[2017-12-14] MEDS: Famotidine 20 MG TABLET PO PRN (07:41)
[2017-12-14] MEDS ORDERED: Isosorbide MONOnitrate (24 HR) 30 MG TAB.ER.24H PO SCH (09:00)
[2017-12-14] MEDS ORDERED: Aspirin Enteric Coated 81 MG Tablet PO SCH (09:00)
[2017-12-14 11:11] VITALS: BP 116/57
--- NOTE | 2017-12-14 11:25 | General Surgery Progress Note ---
Date of Encounter: 12/14/17 Time of Encounter: 09:15 - Assessment and Plan (1) Acute cholecystitis Current Visit: Yes Status: Acute POD#1 s/p lap cholecystectomy; grossly inflamed gallbladder. Kept additional day post-op to continue Abx and monitoring. Tolerating full liquids. No nausea /vomiting/bloating. Trocar sites appear normal. Pt anxious for more substantial food and home discharge. Plan: - stable for discharge from surgical standpoint; hospitalist informed - prescribed Zofran PRN nausea and [place] PRN moderate-severe pain - pt regularly takes Colace at home; no Rx needed - no further abx needed; has been on IV cipro and Flagyl - Web service request submitted by [employer] for 2 week follow up in surgical clinic as OP - Aftercare discussed with patient - Return precautions explained in presence of patient and daughter - All questions answered and patient anxious for discharge Subjective Narrative: Feels better aside from some post operative soreness. No bloating abdominal discomfort. No nausea/vomiting. Tolerating diet. Able to pass flatus. Objective Vital Signs - Last 8 Hours Temp Pulse Resp BP Pulse Ox 12/14/17 11:00 99.2 F 76 15 116/57 95 12/14/17 08:32 98.8 F 73 14 124/64 95 12/14/17 03:57 98.5 F 67 16 120/64 98 Intake and Output 12/13/17 12/14/17 12/14/17 23:59 07:59 15:59 Intake Total 660 / 660 1650 / 1650 580 / 580 Output Total 900 / 900 600 / 600 0 / 0 Balance -240 / -240 1050 / 1050 580 / 580 Intake: IV Fluids 300 / 300 1550 / 1550 100 / 100 0.9 % Sodium Chloride 1,000 ML 1250 / 1250 @ 70 mls/hr IVC .[id number] [facility] Rx #:[id number] Cipro Premix 400 MG/200 ML 400 200 / 200 200 / 200 mg In 200 ml @ 200 mls/hr IVPB Q12HR [facility] Rx#:[id number] Flagyl Premix 500 MG/100 ML 500 100 / 100 100 / 100 100 / 100 mg In 100 ml @ 100 mls/hr IVPB Q8HR [facility] Rx#:[id number] Oral 360 / 360 100 / 100 480 / 480 Output: Urine 900 / 900 600 / 600 0 / 0 Other: Meal Fulls Breakfast Percent of Meal Consumed 100% # Voids 1 1 # Bowel Movements 0 Weight 56.5 kg Patient Weight 12/14/17 23:59 Weight 56.5 kg VITAL SIGNS: Reviewed. [facility] GENERAL: comfortably supine, conversational, NAD HEENT: Normocephalic, PER, EOMi, oropharynx pink/moist, no JVD noted. Stable scleral icterus. CV: b/l rad pulses 2+, RRR, no murmurs or gallops, no JVD RESPIRATORY: CTAB without wheezes, rales, or rhonchi ABD: soft, expected post op tenderness; no distention, guarding, or rigidity. Incision: trocar sites well-healing; no erythema/calor/edema/drainage EXTREMITY: grossly normal motor function, no pedal edema NEUROLOGIC EXAM: AOx3, obeys commands, no speech deficits. PSYCHIATRIC: normal mood and affect SKIN: no gross lesions, rashes, or skin changes - Labs 12/13/17 04:20 12/13/17 04:20 - VTE Documentation of Mechanical Device: Intermittent pneumatic compression device Consult Discharge Plan - Plan Referrals: Gian Juarez DO [Primary Care Provider] - Prescriptions: HYDROcodone/Acet 5/325 mg [[place] 5-325 mg] 1 tab PO Q6H PRN 7 Days #28 tab PRN Reason: Moderate Pain Ondansetron ODT [Zofran ODT] 4 mg PO Q6H #15 tab.chemo
--- NOTE | 2017-12-14 12:29 | Discharge Summary ---
Orders not resulted at time of discharge: Pending orders 12/13/17 09:24 Surgical Pathology [PTH] Routine Date of Encounter: 12/14/17 Time of Encounter: 12:27 - Discharge Diagnosis (1) Acute cholecystitis Priority: Primary Status: Acute Assessment and Plan: Status-post lap cholecystectomy POD #0 Doing well. Continue Roxycodone for pain control Cipro/Flagyl Zofran/phenergan prn n/v GI and Surgery following, recommendations appreciated. Planned for ERCP today Recheck H&H later today (2) GERD (gastroesophageal reflux disease) Priority: Secondary Status: Chronic Qualifiers: Esophagitis presence: without esophagitis Qualified Code(s): K21.9 - Gastro -esophageal reflux disease without esophagitis (3) HLD (hyperlipidemia) Priority: Secondary Status: Chronic Qualifiers: Hyperlipidemia type: unspecified Qualified Code(s): E78.5 - Hyperlipidemia , unspecified (4) HTN (hypertension) Priority: Secondary Status: Chronic Qualifiers: Hypertension type: essential hypertension Qualified Code(s): I10 - Essential (primary) hypertension (5) DVT prophylaxis Priority: Secondary Status: Acute Hospital course: Ms. Lozano is a 82 year old female was about an medical history of hypertension, GERD, history of breast cancer and status post mastectomy many years back. Patient presented with a right-sided abdominal pain which is ongoing for last 48 hours but in last 24 hours it was gradually worsened. She decided to come to the emergency room at 3 AM the cause at that time the pain was very severe. Patient denies palpitation, shortness of breath, dizziness and diarrhea. Workup in the emergency room: Patient was evaluated in the emergency room. CT scan and ultrasound in ED showed acute cholecystitis. She had ERCP done that showed filling defect on cholangiogram with stones and sludge in CBD. there was temporary stent placed. Patient had laparoscopic cholecystectomy on 12/13/17 and tolerated procedure without issue. Patient was discharged home in stable condition. - Time Spent with Patient Total time spent providing and/or coordinating discharge services: - Discharge Medications Home Medications: Aspirin [Lo-Dose Aspirin EC] 81 mg PO DAILY 12/11/17 [History] Cholecalciferol (D-3) [Vitamin D] 1,000 unit PO DAILY 12/11/17 [History] Docusate [Colace] 100 mg PO BID PRN 12/11/17 [History] Famotidine [Pepcid] 20 mg PO BID PRN 12/11/17 [History] Isosorbide MONOnitrate (24 HR) [Imdur] 30 mg PO DAILY 12/11/17 [History] Metoprolol Succinate [Toprol Xl] 25 mg PO HS 12/11/17 [History] Vitamin E Acetate [Vitamin E] 400 unit PO DAILY 12/11/17 [History] Allergies/Adverse Reactions: 3 Allergy/AdvReac Type Severity Reaction Status Date / Time rosuvastatin [From Crestor] AdvReac Cramping Verified 12/11/17 13:47 of the Muscles Leaigve-Pep-Kwr Reductase AdvReac Cramping Verified 12/11/17 13:47 Inhibitor of the [Statins] Muscles Date of admission: 12/11/17 14:07 Primary care physician: Stewart Infante Discharging clinician: Sánchez King - Constitutional Vitals: Temp Pulse Resp BP Pulse Ox 99.2 F 76 15 116/57 95 12/14/17 11:00 12/14/17 11:00 12/14/17 11:00 12/14/17 11:00 12/14/17 11:00 General appearance: Present: A&O X 3, pleasant, no acute distress - Head Head exam: Present: atraumatic, normocephalic - Eye Eye exam: Present: PERRL, conjuntiva pink, sclera anicteric Pupils: Present: PERRL - Neck Neck exam general surgery: Present: supple, trachea midline. Absent: lymphadenopathy - Respiratory Respiratory exam: Present: CTAB. Absent: accessory muscle use, rales, rhonchi, wheezes - Cardiovascular Cardiovascular exam: Present: RRR, +S1, +S2. Absent: diastolic murmur, gallop, rubs, systolic murmur - GI/Abdominal GI/Abdominal exam: Present: normal bowel sounds, soft, no peritoneal signs. Absent: distended, tenderness - Extremities Exam Extremities exam: Present: warm, radial pulses palpable and symmetrical. Absent : calf tenderness, cyanotic, pedal edema - Neurological Exam Neurological exam: Present: CN II-XII intact, oriented X3, no focal deficits. Absent: pronater drift, facial droop, speech deficit - Skin Skin exam: Present: dry, intact - Patient Status Disposition: Home, Self-Care Condition: Fair Functional capacity at discharge: independent ambulation Overall status at discharge: patient is progressing back to baseline - Discharge Instructions Follow Up With: Gian Juarez DO [Primary Care Provider] - - Diet and Activity Activity: increase activity as tolerated Diet: advance to your usual diet, low fat, low cholesterol - VTE Documentation of Mechanical Device: Intermittent pneumatic compression device
--- NOTE | 2017-12-15 13:40 | Operative Note ---
Date of procedure: 12/13/17 Pre-op diagnosis: cholecystitis Post-op diagnosis: same Procedure: laparoscopic cholecystectomy with cholangiogram Anesthesia: NELY Surgeon: Porfirio Nguyen Was there an syrup mixer assistant present: Yes Sox Analyst: Farhana Blount Estimated blood loss (cc): 5 Specimen: GB Condition: stable Disposition: floor Procedure in Detail: After informed consent the patient was taken to the operating room. After adequate sedation anesthesia the abdomen was prepped and draped. A proper timeout was performed. Two towel clamps to place the umbilicus. A varies needle was placed at the umbilicus and a pneumo-peritoneum was created. A 12 mm incision was made at the umbilicus and a port was placed under direct visualization. An 5 mm incision was created in the left upper quadrant, followed by one in the right upper quadrant. There were 2 individual 5 mm cannulas then placed in the RUQ. A alligator clamp was then placed on the gallbladder was retracted anteriorly and cephalad. The infundibulum of the gallbladder was identified and the cystic duct was skeletonized. Once the structures were identified the cystic duct was clipped twice proximally and once distally. A cholangiogram was performed and found to have flow into the hepatic radicals and duodenum. Cystic duct was then transected. The gallbladder was then resected off the liver surface. The ICG was again utilized to identify any aberrant ductwork in the liver bed, and there was none noted. Once the gallbladder was fully resected from the liver surface, the liver was gently irrigated and suctioned dry. We ensured hemostasis prior to removing the gallbladder through the umbilical port. Pneumoperitoneum was then evacuated. The 12 mm cannula site was closed with a 0-Vicryl suture in figure- of-eight fashion. The port sites were injected with half percent Marcaine 30 mL. The skin was closed with 4-0 Vicryl suture and Dermabond. All instrument counts and needle counts were correct at the end of the case. The pt was taken to recovery in stable condition.
== END 2017-12-14 13:15 | disposition home or self-care (01) | DRG 419 ==
LOC: EMEROO 08:40 → 3ANU 08:40
PROVIDERS: ADMIT Hospitalist; ATTEND Hospitalist

== ENCOUNTER 2018-08-30 05:06 | Inpatient (IN) ==
[2018-08-30] MEDS ORDERED: *HR* Heparin 5,000 UNIT/ML VIAL IVP ONE (05:10)
[2018-08-30] MEDS ORDERED: *HR* Ticagrelor 90 MG TABLET PO ONE (05:10)
[2018-08-30] MEDS ORDERED: 0.9 % Sodium Chloride 1,000 ML ONE ×2 (05:13→05:33)
--- NOTE | 2018-08-30 05:16 | Emergency Department Note ---
Disposition Clinical Impression: STEMI (ST elevation myocardial infarction) Qualifiers: Involved coronary artery: unspecified coronary artery Qualified Code(s): I21.3 - ST elevation (STEMI) myocardial infarction of unspecified site Disposition: Admitted As Inpatient Condition: Fair Time of Disposition: 05:18 Chest Pain HPI - General Stated Complaint: STEMI Time Seen by Provider: 08/30/18 05:09 Source: patient, EMS Mode of arrival: EMS Limitations: no limitations Vital Signs Reviewed: Yes Nursing Notes Reviewed: Yes - History of Present Illness Pt complaint: chest pain Onset (ago): hour(s) Duration: constant Onset: during rest Pain Location: substernal Quality: aching Pain Radiation: RUE, LUE Improves with: nothing Worsens with: nothing Context: recent illness Treatments prior to arrival chest pain: aspirin - Related Data On Oral Contraceptives: No Home Medications Medication Instructions Recorded Confirmed RX: Aspirin [Lo-Dose Aspirin EC] 81 mg PO DAILY 12/11/17 03/03/18 RX: Metoprolol Succinate [Toprol 25 mg PO HS 12/11/17 03/03/18 Xl] RX: Vitamin E Acetate [Vitamin E] 400 unit PO DAILY 12/11/17 03/03/18 Previous Rx's Medication Instructions Recorded Benzonatate [Tessalon] 200 mg PO TID PRN #30 capsule 08/28/18 Guaifenesin [Mucinex] 600 mg PO BID #20 tab.er.12h 08/28/18 cephALEXin [Keflex] 500 mg PO QID #40 capsule 08/28/18 Allergies Allergy/AdvReac Type Severity Reaction Status Date / Time rosuvastatin [From Crestor] AdvReac Cramping Verified 08/28/18 11:38 of the Muscles Tqwusss-Abx-Fhb Reductase AdvReac Cramping Verified 08/28/18 11:38 Inhibitor of the [Statins] Muscles All systems ED: reviewed and negative except as stated. Constitutional: Reports: as per HPI Eyes: Reports: as per HPI ENT ED: Reports: as per HPI Cardiovascular: Reports: chest pain Respiratory: Reports: as per HPI Gastrointestinal: Reports: nausea Genitourinary: Reports: as per HPI Musculoskeletal: Reports: other (Bilateral arm pain) Integumentary: Reports: as per HPI Neurological: Reports: as per HPI Psychiatric: Reports: as per HPI Endocrine: Reports: as per HPI Hematological/Lymphatic: Reports: as per HPI Allergic/Immunologic: Reports: as per HPI Chest Pain PMH - Past Medical History Medical history: Reports: hypertension, other (Breast cancer) Surgical history: Reports: appendectomy, breast surgery, cancer surgery, orthopedic, other Psychiatric history: Reports: anxiety - Social History Smoking Status: Never smoker Alcohol use: Reports: none Drug use: Reports: none Physical Exam - General Limitations: no limitations General appearance: alert - Head Head exam: atraumatic - Eye Eye exam: Present: normal appearance - ENT ENT exam: normal exam - Neck Neck exam: Present: normal inspection, full ROM - Chest Chest inspection: Present: normal inspection, symmetric chest wall rise - Respiratory Respiratory exam: Present: normal lung sounds bilaterally - Cardiovascular Cardiovascular exam: Present: regular rate, normal rhythm, normal heart sounds - Rectal Exam Rectal exam: Present: deferred - Extremities Exam Extremities exam: Present: normal inspection - Neurological Exam Neurological exam: Present: alert, oriented X3, CN II-XII intact - Psychiatric Psychiatric exam: Present: normal affect, normal mood - Skin Skin exam: Present: warm, dry, intact Course Course Narrative: Patient arrives complaining of chest pain. Prehospital ECG obtained by EMS personnel reviewed by me prior to patient's arrival indicating ST segment elevation. STEMI alert activated. Upon arrival repeat ECG confirms ST segment elevation. Case discussed with the on-call prepared foods supervisor at 05:05 - Reevaluation(s) Reevaluation #1: The patient had a wide complex tachycardia requiring cardioversion at 05:30 Time: 05:34 Vital Signs Temperature 97.6 F 08/30/18 05:07 Pulse Rate 81 08/30/18 05:07 Respiratory Rate 18 08/30/18 05:07 Blood Pressure 143/72 08/30/18 05:07 O2 Sat by Pulse Oximetry 97 08/30/18 05:07 Temperature 97.6 F 08/30/18 05:07 Pulse Rate 73 08/30/18 05:40 Respiratory Rate 16 08/30/18 05:40 Blood Pressure 149/86 08/30/18 05:40 O2 Sat by Pulse Oximetry 97 08/30/18 05:40 Oxygen Delivery Oxygen Delivery Room Air Chest Pain - Lab Data Lab results reviewed: Yes I reviewed the patient's lab results. Result diagrams: 08/30/18 05:12 08/30/18 05:12 Lab Results 08/30/18 08/30/18 08/30/18 Range/Units 05:12 05:12 05:12 WBC 9.3 (4.3-11.1) K/mcL RBC 4.16 (3.82-4.97) M/mcL Hgb 13.4 (11.5-15.4) g/dL Hct 40.4 (35.3-44.9) % MCV 97.1 (83.0-100.0) fL MCH 32.2 (28.0-33.3) pg MCHC 33.2 (31.6-35.5) g/dL RDW 13.4 (11.5-14.5) % Plt Count 238 (140-400) K/mcL MPV 10.3 (9.4-12.4) fL Immature Gran % 0.3 (0-4) % Seg Neutrophils % 42.6 % Lymphocytes % 42.9 % Monocytes % 11.0 % Eosinophils % 2.3 % Basophils % 0.9 % Neutrophils # 4.0 (1.6-8.9) K/mcL Lymphocytes # 4.0 (0.6-4.6) K/mcL Monocytes # 1.0 (0.0-1.3) K/mcL Eosinophils # 0.2 (0.0-0.6) K/mcL Basophils # 0.1 (0.0-0.2) K/mcL PT 10.7 (9.4-12.1) Seconds INR 1.0 APTT 33.6 (26.0-36.0) Seconds Sodium 137 (136-145) mEq/L Potassium 3.8 (3.5-5.1) mEq/L Chloride 99 (98-107) mEq/L Carbon Dioxide 28 (23-29) mEq/L BUN 20 (8-23) mg/dL Creatinine 0.85 (0.60-1.20) mg/dL Est GFR ( Amer) > 60 (> 60) Est GFR (Non-Af Amer) > 60 (> 60) BUN/Creatinine Ratio 24 (6-26) Glucose 155 H (70-105) mg/dL Calculated Osmolality 290 (280-300) Calcium 10.0 (8.6-10.3) mg/dL Magnesium 2.0 (1.6-2.6) mg/dL Troponin I 0.18 H* (< 0.04) ng/mL - Radiology Data Radiology results reviewed: Yes I reviewed the patient's radiology results. - EKG Data EKG attestation: Yes I reviewed and interpreted this EKG. EKG results narrative: Normal sinus rhythm right bundle branch block rate 70 7 PM 184 QRS 155 QT QTC 453/513. ST segment elevation in inferior leads with ST segment depression in leads V1 and V2. Study compared to previous dated 12/11/17 and is dynamically different Critical Care Time Critical Care Time: Yes Total Critical Care Time: 30 Attestation: The high probability of a clinically significant, sudden or life threatening deterioration of the [] system(s) required my full and direct attention, intervention and personal management. The aggregate critical care time was [] minutes. This time is in addition to time spent performing reported procedures but includes the following: [] Data Review and interpretation [] Patient assessment and monitoring of vital signs [] Documentation [] Medication orders and management
[2018-08-30] MEDS ORDERED: *HR* Heparin 5,000 UNIT/ML VIAL ONE (05:18)
[2018-08-30 05:24] LABS: Basophils # 0.1 K/mcL (0.0-0.2); Basophils % 0.9 %; Eosinophils # 0.2 K/mcL (0.0-0.6); Eosinophils % 2.3 %; Hematocrit 40.4 % (35.3-44.9); Hemoglobin 13.4 g/dL (11.5-15.4); Immature Granulocytes % 0.3 % (0-4); Lymphocytes % 42.9 %; Mean Corpuscular HGB Conc 33.2 g/dL (31.6-35.5); Mean Corpuscular Hemoglobin 32.2 pg (28.0-33.3); Mean Corpuscular Volume 97.1 fL (83.0-100.0); Mean Platelet Volume 10.3 fL (9.4-12.4); Platelet Count 238 K/mcL (140-400); Red Blood Count 4.16 M/mcL (3.82-4.97); Red Cell Distribution Width 13.4 % (11.5-14.5); Segmented Neutrophils % 42.6 %
[2018-08-30 05:32] LABS: Prothrombin Time 10.7 Seconds (9.4-12.1)
[2018-08-30] MEDS ORDERED: *HR* Heparin 10,000 UNIT/10 ML VIAL ONE (05:33)
[2018-08-30] MEDS ORDERED: ISOVUE-370 200 ML INFUS..BTL ONE (05:33)
[2018-08-30] MEDS ORDERED: *HR* FentaNYL (PF) 100 MCG/2 ML VIAL ONE (05:33)
[2018-08-30] MEDS ORDERED: Heparin 1,000 UNITS/500 mL 500 ML ONE (05:33)
[2018-08-30] MEDS ORDERED: *HR* Midazolam HCl 2 MG/2 ML VIAL ONE (05:33)
[2018-08-30] MEDS ORDERED: Nitroglycerin 1,000 MCG/10 ML VIAL IV ONE (05:34)
[2018-08-30 05:35] LABS: Activated Partial Thrombo Time 33.6 Seconds (26.0-36.0)
[2018-08-30 05:45] LABS: BUN/Creatinine Ratio 24 (6-26); Blood Urea Nitrogen 20 mg/dL (8-23); Carbon Dioxide 28 mEq/L (23-29); Chloride 99 mEq/L (98-107); Glucose 155 mg/dL (70-105); Osmolality,Calculated 290 (280-300); Potassium 3.8 mEq/L (3.5-5.1); Sodium 137 mEq/L (136-145); eGFR For Non-African Americans > 60 (> 60)
[2018-08-30 05:50] LABS: Troponin I 0.18 ng/mL (< 0.04)
[2018-08-30] MEDS ORDERED: Ondansetron 4 MG/2 ML VIAL ONE (05:58)
[2018-08-30] MEDS ORDERED: *HR* Bivalirudin 250 MG VIAL IVC ONE (06:01)
[2018-08-30] MEDS ORDERED: *HR* Ticagrelor 90 MG TABLET ONE (06:27)
[2018-08-30] MEDS ORDERED: Nitroglycerin 0.4 MG TAB.SUBL SL PRN (06:37)
[2018-08-30] MEDS ORDERED: 0.9 % Sodium Chloride 1,000 ML IVC SCH (06:45)
--- NOTE | 2018-08-30 06:49 | Invasive Diagnostic Lab Proc ---
Name: Bre Lozano Date of Study: 08/30/2018 Date: 1935 Ht: 62.0in Medical Record#: [id number] Age: 82 Wt: 170.42lb Gender: Female BSA: 1.79 Order #: [id number] BMI: 31.16 Physicians Procedure Physician: Marlene Monahan MD, [facility] Referring MD: Referring MD: Staff Name Position Time In Sites, Giselle RT (R) Monitor 05:48 AM Tamanna Priest RT (R) Scrub 05:48 AM Delfin Torres RN Church Supervisor 05:48 AM Indications Indication STEMI Procedures Performed Procedure L HRT ARTERY/VENTRICLE ANGIO PRQ CARD REVASC [place] 1 VSL Pre-Procedure Checklist Informed consent is complete signed and on chart. H&P is on chart. ID band is on and ID verified with patient. Patient NPO for procedure The procedure was described for the patient and questions were answered. Blood Pressure: 124/83 ECG is on chart. Rhythm: NSR Plan of Care Patient will tolerate the procedure without complications. Adequate level of comfort will be maintained. Hemodynamics will remain stable Patient will recover from procedure without complications. Respiratory function will be maintained. Cardiac rhythm will remain stable. Patient temperature will be maintained. Patient and/or family have verbalized understanding of the procedure. Patient Education Intravenous Access Time IV Size Location DC'd Fluid/Drip Rate Units RN 18g 1 1/4" Patent On Arrival Lt Arm 0.9NaCl 50 ml/hr Delfin Torres RN 20g 1 1/4" Patent On Arrival Lt Hand Allergies Jkbxrcr-Jcr-Lyx Reductase Inhibitor rosuvastatin Vital Signs Time BP (mmHg) HR (bpm) O2 Sat. RR (bpm) LOC 05:57 AM / % 5 = Fully awake and oriented or at pre-proc level 05:57 AM / % 4 = Oriented but drowsy 06:12 AM / % 4 = Oriented but drowsy 05:56 AM 147 / 78 75 99 % 23 06:01 AM 142 / 88 79 97 % 11 06:06 AM 137 / 80 82 91 % 26 06:11 AM 141 / 87 84 92 % 17 06:16 AM 124 / 94 81 95 % 16 06:21 AM 120 / 73 82 93 % 16 06:26 AM 123 / 77 88 90 % 13 Procedural Medications Time Medication Dose Units Method Given By 05:56 AM Oxygen 2 L/min nasal cannula Delfin Torres RN 05:59 AM Versed 1 mg Intravenous Delfin Torres RN 06:00 AM Fentanyl 25 mcg Intravenous Delfin Torres RN 06:00 AM Zofran 4 mg Intravenous Delfin Torres RN 06:00 AM Lidocaine 2% 20 ml Subcutaneous Marlene Monahan MD, FACC 06:04 AM Oxygen 4 L/min nasal cannula Delfin Torres RN 06:08 AM Angiomax 0.75mg/kg bolus: 11 ml Intravenous Delifn Torres RN 06:08 AM Angiomax 1.75mg/kg/hr: 26 ml Intravenous Delfin Torres RN 06:17 AM Nitroglycerin 200 mcg Intracoronary Marlene Monahan MD, FACC 06:17 AM Nitroglycerin 200 mcg Intracoronary Delfin Torres RN 06:19 AM Fentanyl 25 mcg Intravenous Delfin Torres RN 06:29 AM Oxygen 6 L/min Oxy Mask Delfin Torres RN 06:30 AM Brilinta 180 mg Orally crushed Delfin Torres RN ASA Classification: Emergent Procedure: ASA score is assumed Juhi Score Preprocedure Postprocedure Activity 2- Moves 4 extremities sustained head lift Activity 2- Moves 4 extremities sustained head lift Circulation 2- SBP +/= 20 points of pre-anesthetic level Circulation 2- SBP +/= 20 points of pre-anesthetic level Consciousness 2- Awake and alert oriented x 3 Consciousness 2- Awake and alert oriented x 3 O2 Saturation 2- Able to maintain O2 satruation of 92% on room air O2 Saturation 2- Able to maintain O2 satruation of 92% on room air Respiratory 2- Able to deep breathe and cough well Respiratory 2- Able to deep breathe and cough well Total Score 10 Total Score 10 Contrast Agent: Isovue Diagnostic Contrast: 135 ml Total Contrast: 135 ml Fluoro Dose: 5630 mGy Procedure Log Time Note Enter By 05:44 AM CathStat 05:48 AM Giselle Holder RT (R) Position: Monitor Time in: 05:48 tsites 05:48 AM Tamanna Priest RT (R) Position: Scrub Time in: 05:48 tsites 05:48 AM Delfin Torres RN Position: Church Supervisor Time in: 05:48 tsites 05:48 AM Patient charges- Angio tray pack, Navilyst 3mm J, Pulse Oximetry and ACIST tubing and transducer tsites 05:48 AM Case Delayed No tsites 05:49 AM Physician arrived 05:49 tsites 05:52 AM Pt arrived to center medical and lab director 2 at 05:52 tsites 05:56 AM Vitals capture started with the following parameters, Patient=Adult, Interval=5 min, Initial Psjhmqsh=126 mmHg, Deflation Rate=5 mmHg, Cuff placed on Right Arm 05:56 AM HR=75 bpm, ZKEJ=216/78 mmhg, SpO2=99.0 %, Resp=23 B/min, EtCO2=36 mmHg 05:57 AM Time: 05:56 Oxygen on at 2 L/min per nasal cannula by Delfin Torres RN tsites 05:57 AM Time: 05:57 Patient comfortable and pain free: Yes tsites 05:57 AM Time: 05:57LOC: 5 = Fully awake and oriented or at pre-proc level tsites 05:57 AM Clinical Presentation: STEMI or equivalent tsites 05:57 AM Critical cardiac patient with acute [place] was brought emergently to the cardiac cardiovascular lab director for immediate coronary angiography and intervention if clinically indicated. tsites 05:57 AM Recorded ECG: HR=76 Condition=Condition 1 05:59 AM Pressure channel 1 zeroed. 05:59 AM Time out was performed according to hospital policy. Conscious sedation and anesthesia was achieved (see medication log with in this report above) tsites 05:59 AM Procedure start 05:59 tsites 06:00 AM Time: 05:59 Versed 1 mg Intravenous Given by Delfin Torres RN tsites 06:00 AM Time: 06:00 Fentanyl 25 mcg Intravenous Given by Delfin Torres RN tsites 06:00 AM Time: 06:00 Zofran 4 mg Intravenous Given by Delfin Torres RN tsites 06:00 AM Hair removed from procedure site in emergency department using clippers. Bilateral groin prepped with Chloraprep by Delfin Torres RN, then patient was draped. Skin intact. tsites 06:00 AM Time: 06:00 20 ml Lidocaine 2% to right groin Subcutaneous Given by Marlene Monahan MD, [facility] tsites 06:00 AM Access obtained by percutaneous puncture. 6Fr 10cm Terumo [place] sheath placed in right Femoral artery. [id number] tsites 06:00 AM 5Fr FL 4 catheter inserted over the wire [facility] tsites 06:01 AM 0.035 145cm Navilyst 3mmJ wire [id number] tsites 06:01 AM HR=79 bpm, ANAA=599/88 mmhg, SpO2=97.0 %, Resp=11 B/min 06:01 AM Pressure channel 1 zeroed. 06:02 AM LCA angiography performed in multiple views. tsites 06:02 AM Recorded Pressure: Ao, HR=76, Condition=Condition 1 (Aorta) Ao 133/75/101 06:04 AM wire reinserted catheter removed tsites 06:04 AM 6Fr JR 4 Runway guide catheter was used to cannulate the PCI vessel successfully. reused? No tsites 06:04 AM Time: 06:04 Oxygen on at 4 L/min per nasal cannula by Delfin Torres RN tsites 06:05 AM Recorded Pressure: Ao, HR=81, Condition=Condition 1 (Aorta) Ao 91/37/61 06:05 AM RCA angiography performed in multiple views. tsites 06:06 AM 0.035 260cm Navilyst 3mmJ wire [id number] tsites 06:06 AM HR=82 bpm, QVOX=359/80 mmhg, SpO2=91 %, Resp=26 B/min 06:06 AM PCI Status Emergency tsites 06:07 AM PCI lesion in Mid Circumflex. tsites 06:07 AM 6Fr XB LAD 3.5 [place] Bright-Tip guide catheter was used to cannulate the PCI vessel successfully. reused? No tsites 06:07 AM Inflation device was opened. tsites 06:07 AM Coronary Dominance: right tsites 06:08 AM Lesion found in Proximal RCA. Pre Stenosis: 100 Pre BRIANA Flow: tsites 06:08 AM Lesion found in Mid Circumflex. Pre Stenosis: 99 Pre BRIANA Flow: 2: Partial Flow/Perfusion (> 1 but < 3) tsites 06:08 AM Time: 06:08 Angiomax 0.75mg/kg bolus: 11 ml Intravenous Given by Delfin Torres RN Arreola pump tsites 06:08 AM Time: 06:08 Angiomax 1.75mg/kg/hr: 26 ml Intravenous Given by Delfin Torres RN Arreola pump tsites 06:11 AM 2.0 mm x 15 mm Mozec Rx balloon across target lesion- successful. reused? No tsites 06:11 AM Balloon inflated @ 8 kacy for 20 seconds tsites 06:11 AM HR=84 bpm, JAPG=429/87 mmhg, SpO2=92.0 %, Resp=17 B/min 06:11 AM Balloon inflated @ 8 kacy for 20 seconds tsites 06:12 AM Time: 05:57 Patient comfortable and pain free: Yes tsites 06:12 AM Time: 05:57LOC: 4 = Oriented but drowsy tsites 06:13 AM Balloon inflated @ 8 kacy for 20 seconds tsites 06:13 AM Recorded Pressure: Ao, HR=82, Condition=Condition 1 (Aorta) Ao 129/61/90 06:13 AM Balloon catheter removed intact. tsites 06:14 AM 2.75mm x 28mm Synergy drug-eluting stent across target lesion- successful Lot #[id number] tsites 06:15 AM Stent deployed @ 12 kacy for 30 seconds tsites 06:16 AM Stent balloon reinflated @ 14 kacy for 10 seconds tsites 06:16 AM HR=81 bpm, MNCD=675/94 mmhg, SpO2=95 %, Resp=16 B/min 06:17 AM Stent delivery system removed intact. tsites 06:17 AM Time: 06:17 Nitroglycerin 200 mcg Intracoronary Given by Marlene Monahan MD, [facility] tsites 06:18 AM Time: 06:17 Nitroglycerin 200 mcg Intracoronary Given by Delfin Torres RN tsites 06:18 AM Recorded Pressure: Ao, HR=83, Condition=Condition 1 (Aorta) Ao 100/57/75 06:19 AM Guide catheter removed intact. tsites 06:19 AM 5Fr Pigtail catheter inserted over the wire [facility] tsites 06:19 AM Catheter crossed the aortic valve and was selectively placed in the left ventricle. Pressures recorded on pullback for left heart catheterization. tsites 06:19 AM Bolus angiogram of left Ventricle complete: 8 ml/sec for a total of 24 mls tsites 06:19 AM Time: 06:19 Fentanyl 25 mcg Intravenous Given by Delfin Torres RN tsites 06:20 AM Right Coronary, Right Posterior Descending Arteries with Right Posterolateral and Acute Marginal branches with 100 % stenosis. If graft is supplying this area, 0 % stenosis tsites 06:20 AM Circumflex, Obtuse Marginal, Left Posterior Descending, and Left Posterolateral Coronary Arteries with 99 % stenosis. If graft is supplying this area, 0 % stenosis tsites 06:21 AM Recorded Pressure: LV, HR=84, Condition=Condition 1 (Left Ventricle) LV 129/0/20 06:21 AM Recorded Pressure: LV, Ao, HR=83, Condition=Condition 1 (Left Ventricle) LV 137/51/82, (Aorta) Ao 111/77/94 06:21 AM HR=82 bpm, HRSB=770/73 mmhg, SpO2=93.0 %, Resp=16 B/min 06:21 AM Catheter removed tsites 06:21 AM Bolus angiogram of right Femoral complete: 2 ml/sec for a total of 4 mls tsites 06:22 AM Procedure completed at 06:22 08/30/2018 tsites 06:22 AM Did you address BRIANA flow and Dominance? Yes tsites 06:23 AM Sign out completed: Radiation Dose 442 mGy, 5630 cGy/cm2 Fluoro Time: 4.9 Isovue 370 - 200ml contrast 135 ml given by Marlene Monahan MD, [facility]. Complications: None. The patient was discharged out of the cardiovascular lab director in stable condition. Cardiac Rehab Consult needed: YesConfirmed administered medications: Yes tsites 06:24 AM Isovue 370 - 200ml,1 Bottle(s) used. tsites 06:24 AM Sheath left in place to be pulled on floor/holding areaV+Pad tsites 06:24 AM Estimated Blood Loss: less than 20cc tsites 06:24 AM Post ECG NSR tsites 06:24 AM Post Blood Pressure 120/73 tsites 06:24 AM 06:24 Post Pulses Bilateral DP & PT 1+ tsites 06:25 AM Recorded ECG: HR=82 Condition=Condition 1 06:25 AM Information taught Cardiac Cath and PCI tsites 06:26 AM HR=88 bpm, GSYP=519/77 mmhg, SpO2=90.0 %, Resp=13 B/min 06:29 AM Time: 06:12LOC: 4 = Oriented but drowsy tsites 06:29 AM Time: 06:12 Patient comfortable and pain free: Yes tsites 06:29 AM Education needs Procedure, Plan of Care, and Responsibilities of Patient in Care tsites 06:29 AM Learning barriers :None tsites 06:29 AM Education Methods Verbal tsites 06:29 AM Time: 06:29 Oxygen on at 6 L/min per Oxy Mask by Delfin Torres RN tsites 06:30 AM Learning barriers :None tsites 06:30 AM Education Methods Verbal tsites 06:30 AM Education evaluation Able to repeat information tsites 06:30 AM Site status No bleeding/hematoma - Rt Groin as reported by Tamanna Priest RT (R) at 06:30 tsites 06:30 AM Opsite applied tsites 06:30 AM Plavix, Effient or Brilinta given Yes tsites 06:30 AM Time: 06:30 Brilinta 180 mg Orally crushed Given by Delfin Torres RN tsites 06:31 AM Family placed in consult room. tsites 06:31 AM Delay to floor No tsites 06:31 AM Patient out of room: 06:31 tsites 06:38 AM Report given to Amira VASQUZE Pt taken to ICU Room #11. 06:37 tsites 06:38 AM Plavix, Effient or Brilinta given Yes tsites 06:39 AM Lesion found in Mid LAD. Pre Stenosis: 85 Pre BRIANA Flow: tsites 06:39 AM Lesion found in Proximal LAD. Pre Stenosis: 40 Pre BRIANA Flow: tsites 06:39 AM Lesion found in Proximal Circumflex. Pre Stenosis: 30 Pre BRIANA Flow: tsites Complications Complication None Hemodynamics Pressures Site Systolic/A Wave Diastolic/V Wave Mean AO 133 75 101 AO 91 37 61 AO 129 61 90 AO 100 57 75 LV 129 0 20 LV 137 51 82 AO 111 77 94 Post Procedure Information Blood Pressure: 120/73 mmHg Rhythm: NSR Post procedural instructions were given Closure Device Time Device Success/Fail 08/30/2018 6:38:00 AM Manual Compression Successful Site Checks Time Location Status Staff Sheath In? Note 06:30 AM Rt Groin No bleeding/hematoma Tamanna Priest RT (R) Pulses Time Site Pre-Procedure Post-Procedure Note Bilateral DP & PT 1+ 6:24:00 AM Bilateral DP & PT 1+ Updated by Giselle Holder RT (R) on 08/30/2018 6:42:54 AM RT Adrian electronically signed on 08/30/2018 6:43:21 AM with status of Final
--- NOTE | 2018-08-30 06:49 | Cardiology History & Physical ---
Date of Encounter: 08/30/18 Time of Encounter: 05:50 Assessment and Plan (1) STEMI (ST elevation myocardial infarction) Current Visit: Yes Status: Acute Pt currently experiencing acute inferoposterolateral STEMI. Will proceed emergently to cardiac catheterization lab for diagnostic LHC and probable PCI. All risks/benefits discussed with patient by me. Agreeable to proceed. Further recommendations pending results. Qualifiers: Involved coronary artery: unspecified coronary artery Qualified Code(s): I21.3 - ST elevation (STEMI) myocardial infarction of unspecified site (2) HTN (hypertension) Current Visit: No Status: Chronic Qualifiers: Hypertension type: essential hypertension Qualified Code(s): I10 - Essential (primary) hypertension (3) HLD (hyperlipidemia) Current Visit: No Status: Chronic Per records, pt intolerant to multiple statin drugs due to myalgias. Qualifiers: Hyperlipidemia type: unspecified Qualified Code(s): E78.5 - Hyperlipidemia, unspecified History of Present Illness Chief complaint: chest pain HPI: Ms. Lozano is a 82 year old female with HTN, hyperlipidemia presents to [facility] ED via EMS for evaluation of CP. Pt states that for past 2 days has had intermittent CP, b/l arm discomfort, nausea. Also felt like had "gas pain." Attributed symptoms to ATB she was taking for URI- had been recently seen at urgent care for SOB, cough. Symptoms worsened overnight and had more n/v and therefore called EMS. Upon arrival of EMS, EKG was performed which demonstrated RBBB with acute inferoposterolateral STEMI. While in ED, pt went into VF. Had successful defib x 1 with roman catholic of NSR. Pt denies prior cardiac history. Past Med Surg Social Fam HX - Past Medical History Source: patient, old records reviewed Medical history: cancer (breast), hyperlipidemia, hypertension, liver disease (fatty liver), TIA, other (Breast cancer) Additional medical history: BCC Psychiatric history: anxiety - Past Surgical History Surgical History: appendectomy, breast surgery, cancer surgery (R mastectomy), cholecystectomy, orthopedic, other Additional surgical history: mastectomy (right) - Social History Smoking Status: Never smoker Smokeless Tobacco Status: No Alcohol use: none Drug use: none - Family History Father Living Status: Cause of : CVA Hx Family Neurologic Disorders: Yes Sister Hx Family Cancer: Yes (colon) Brother Living Status: Hx Family Cardiac Disorders: Yes (AK, CVA) Medications and Allergies Aspirin [Lo-Dose Aspirin EC] 81 mg PO DAILY 12/11/17 [History] Metoprolol Succinate [Toprol Xl] 25 mg PO HS 12/11/17 [History] Vitamin E Acetate [Vitamin E] 400 unit PO DAILY 12/11/17 [History] Benzonatate [Tessalon] 200 mg PO TID PRN #30 capsule 08/28/18 [Rx] Guaifenesin [Mucinex] 600 mg PO BID #20 tab.er.12h 08/28/18 [Rx] cephALEXin [Keflex] 500 mg PO QID #40 capsule 08/28/18 [Rx] Allergy/AdvReac Type Severity Reaction Status Date / Time rosuvastatin [From Crestor] AdvReac Cramping Verified 08/28/18 11:38 of the Muscles Ybnkddx-Viv-Mtx Reductase AdvReac Cramping Verified 08/28/18 11:38 Inhibitor of the [Statins] Muscles ROS unobtainable: other (emergency) All Systems Review: The remainder of the systems were reviewed and are negative - Cardiovascular Cardiovascular: as per HPI Physical Examination Vital Signs, Last 4 Hours Temp Pulse Resp BP Pulse Ox 08/30/18 05:40 73 16 149/86 97 08/30/18 05:33 76 18 160/86 99 08/30/18 05:07 97.6 F 81 18 143/72 97 General: Other (appears uncomfortable, mild distress) HEENT: Atraumatic, Normocephaly, Mucus Membranes Moist Neck: No JVD, Normal carotid pulses Cardiac: Reg Rate and Rhythm, Normal S1 and S2, No Murmur Lungs: Normal Breath Sounds, No Wheeze, Rales, Rhonchi Neuro: Alert and responsive Abdomen: Soft, Non-Tender Musculoskeletal: Other (R breast surgically absent) Extremities: No Clubbing, No Cyanosis, No Edema, Normal Pulses Results 08/30/18 05:12 08/30/18 05:12 Lab Results 08/30/18 08/30/18 08/30/18 05:12 05:12 05:12 WBC 9.3 Hgb 13.4 Hct 40.4 Plt Count 238 INR 1.0 APTT 33.6 Sodium 137 Potassium 3.8 Chloride 99 Carbon Dioxide 28 BUN 20 Creatinine 0.85 Glucose 155 H Calcium 10.0 Magnesium 2.0 Troponin I 0.18 H* - EKG Interpretation EKG results cardiology: personally reviewed (NSR with RBBB, acute inferoposterolateral STEMI) - VTE Reasons for not Prescribing Prophylaxis: Not indicated-Anticoagulated or INR therapeutic
[2018-08-30] MEDS: Heparin 25,000 UNIT/500 ML D5W 25,000 UNIT/500 ML BAG IVC SCH (08:07)
[2018-08-30] MEDS: Aspirin Enteric Coated 81 MG Tablet PO SCH (08:39)
[2018-08-30 09:06] LABS: Magnesium 1.7 mg/dL (1.6-2.6); Troponin I 2.33 ng/mL (< 0.04)
[2018-08-30 09:16] LABS: Thyroid Stimulating Hormone 3.351 mcIU/mL (0.340-5.600)
[2018-08-30] MEDS ORDERED: Benzonatate 100 MG CAPSULE PO PRN (10:25)
[2018-08-30] MEDS ORDERED: diazePAM 5 MG TABLET PO PRN (10:25)
[2018-08-30] MEDS: cephALEXin 500 MG CAPSULE PO SCH ×2 (10:50→20:10)
[2018-08-31] MEDS: Heparin 25,000 UNIT/500 ML D5W 25,000 UNIT/500 ML BAG IVC SCH (04:46)
[2018-08-31 07:10] LABS: Basophils % 0.4 %; Eosinophils # 0.1 K/mcL (0.0-0.6); Eosinophils % 1.1 %; Hematocrit 33.2 % (35.3-44.9); Hemoglobin 10.8 g/dL (11.5-15.4); Immature Granulocytes % 0.4 % (0-4); Lymphocytes # 1.8 K/mcL (0.6-4.6); Lymphocytes % 17.5 %; Mean Corpuscular HGB Conc 32.5 g/dL (31.6-35.5); Mean Corpuscular Hemoglobin 32.3 pg (28.0-33.3); Mean Corpuscular Volume 99.4 fL (83.0-100.0); Mean Platelet Volume 10.5 fL (9.4-12.4); Monocytes # 1.1 K/mcL (0.0-1.3); Monocytes % 10.2 %; Neutrophils # 7.3 K/mcL (1.6-8.9); Platelet Count 207 K/mcL (140-400); Red Blood Count 3.34 M/mcL (3.82-4.97); Red Cell Distribution Width 13.9 % (11.5-14.5); Segmented Neutrophils % 70.4 %
[2018-08-31 07:32] LABS: BUN/Creatinine Ratio 15 (6-26); Blood Urea Nitrogen 9 mg/dL (8-23); Calcium 8.1 mg/dL (8.6-10.3); Carbon Dioxide 27 mEq/L (23-29); Chloride 109 mEq/L (98-107); Chol/HDL Ratio 3.6 (0-4.9); Cholesterol 163 mg/dL (< 200); Glucose 115 mg/dL (70-105); HDL Cholesterol 45 mg/dL (40-59); LDL Cholesterol,Calculated 89 mg/dL (0-99); Osmolality,Calculated 292 (280-300); Potassium 3.7 mEq/L (3.5-5.1); Sodium 141 mEq/L (136-145); Triglycerides 145 mg/dL (< 150); eGFR For Non-African Americans > 60 (> 60)
[2018-08-31 07:35] LABS: Troponin I 9.81 ng/mL (< 0.04)
[2018-08-31] MEDS: Aspirin Enteric Coated 81 MG Tablet PO SCH (07:53)
[2018-08-31] MEDS: cephALEXin 500 MG CAPSULE PO SCH ×2 (07:53→19:45)
[2018-08-31 08:48] LABS: Estimated Average Glucose 120 mg/dl; Hemoglobin A1C 5.8 %
--- NOTE | 2018-08-31 09:28 | Cardiology Progress Note ---
Date of Encounter: 08/31/18 Time of Encounter: 08:00 Assessment and Plan (1) STEMI (ST elevation myocardial infarction) Current Visit: Yes Status: Acute S/p acute inferoposterolateral STEMI. Troponin o.18, 2.33, 9.81. S/p VF arrest with successful defib x1 in ED. S/p PCI to the mLCx artery. [employer] of the RCA seen with R-R collaterals. 85% stenosis in the mLAD remaining. Plan for staged PCI 09/01/18. No complication from her procedure or femoral access site seen. She is chest pain free. Telemetry reviewed. NSR with occasional runs of atrial tachycardia with HR 149 bpm up to 6 seconds long. No VT. No bradycardia seen. TTE- LVEF 50%. Moderate concentric left ventricular hypertrophy. Mild segmental left ventricular systolic dysfunction. Mild left ventricular diastolic dysfunction. Normal right ventricular structure and function. Mild mitral regurgitation. Importance of DAPT with asa and plavix uninterrupted for min one year discussed and she voiced understanding. Continue bb. She is not on statin therapy due to allergy. Healthy heart diet and exercise recommended after recovery. Cardiac rehab ordered. NPO after midnight for planned staged PCI. Qualifiers: Involved coronary artery: unspecified coronary artery Qualified Code(s): I21.3 - ST elevation (STEMI) myocardial infarction of unspecified site (2) Cardiac arrest Current Visit: Yes Status: Acute Witnessed VF arrest in ED with successful defib x1. S/p revascularization. Continue BB. (3) URI (upper respiratory infection) Current Visit: Yes Status: Acute Recent diagnosis of URI. Continues to have cough. Denies fever or chills. Continue keflex until completed as previously ordered. Mucinex and tessalon lam ordered PRN. Qualifiers: URI type: unspecified viral URI Qualified Code(s): J06.9 - Acute upper respiratory infection, unspecified Discussion w patient/family: The assessment and plan as outlined above was discussed with the patient and/or family members who expressed understanding and agreement. All questions were answered. Thank you for involving us in the care of your patient. Please call with any questions. Subjective Principal diagnosis: STEMI, cardiac arrest Interval history: Mrs. Lozano is an 82-year old female who presented with chest pain and was found to have inferoposterior lateral STEMI. She developed Vfib arrest in the ED and was defibrillated successfullyx1. She underwent emergent LHC and received PCI x2 to the mLCx artery. There is plan for staged PCI to the LAD tomorrow. She is sitting in her chair eating breakfast this morning. No cardiac complaints. No c/o problem with right groin access. Objective Vital Signs, Last 4 Hours Temp Pulse Resp BP Pulse Ox 08/31/18 08:00 90 20 132/84 96 08/31/18 07:55 98.4 F 08/31/18 07:00 90 99 117/65 99 08/31/18 06:00 18 114/59 94 General: Conversant, No Apparent Distress HEENT: Atraumatic, Normocephaly, Mucus Membranes Moist Neck: No JVD, Normal carotid pulses Cardiac: Reg Rate and Rhythm, Normal S1 and S2, No Murmur Lungs: Normal Breath Sounds, No Wheeze, Rales, Rhonchi Neuro: Alert and responsive, No focal deficits noted Abdomen: Soft, Non-Tender Skin: No rashes noted on visualized skin Musculoskeletal: No Chest Wall Tenderness Extremities: No Clubbing, No Cyanosis, No Edema, Normal Pulses Results 08/31/18 07:01 08/31/18 07:01 Lab Results 08/31/18 08/31/18 07:01 07:01 WBC 10.4 Hgb 10.8 L D Hct 33.2 L Plt Count 207 Sodium 141 Potassium 3.7 Chloride 109 H Carbon Dioxide 27 BUN 9 Creatinine 0.61 Glucose 115 H Calcium 8.1 L Troponin I 9.81 H* - Imaging and Cardiology Echo: report reviewed Cardiac cath: report reviewed - EKG Interpretation EKG results cardiology: personally reviewed - VTE Reasons for not Prescribing Prophylaxis: Not indicated-Anticoagulated or INR therapeutic Consult Discharge Plan - Plan Referrals: NONE,PCP [Primary Care Provider] -
--- NOTE | 2018-08-31 13:28 | Electrocardiograph Report ---
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
[2018-08-31 15:07] LABS: Hematocrit 34.5 % (35.3-44.9); Hemoglobin 11.5 g/dL (11.5-15.4)
[2018-09-01] MEDS: Heparin 25,000 UNIT/500 ML D5W 25,000 UNIT/500 ML BAG IVC SCH (03:10)
[2018-09-01 04:24] LABS: Basophils # 0.1 K/mcL (0.0-0.2); Basophils % 0.5 %; Eosinophils # 0.2 K/mcL (0.0-0.6); Eosinophils % 2.1 %; Hematocrit 33.8 % (35.3-44.9); Hemoglobin 11.1 g/dL (11.5-15.4); Immature Granulocytes % 0.4 % (0-4); Lymphocytes # 2.9 K/mcL (0.6-4.6); Lymphocytes % 29.8 %; Mean Corpuscular HGB Conc 32.8 g/dL (31.6-35.5); Mean Corpuscular Hemoglobin 32.5 pg (28.0-33.3); Mean Corpuscular Volume 98.8 fL (83.0-100.0); Mean Platelet Volume 10.4 fL (9.4-12.4); Monocytes # 1.2 K/mcL (0.0-1.3); Monocytes % 12.1 %; Neutrophils # 5.4 K/mcL (1.6-8.9); Platelet Count 218 K/mcL (140-400); Red Blood Count 3.42 M/mcL (3.82-4.97); Segmented Neutrophils % 55.1 %
[2018-09-01 04:43] LABS: BUN/Creatinine Ratio 19 (6-26); Blood Urea Nitrogen 14 mg/dL (8-23); Carbon Dioxide 28 mEq/L (23-29); Chloride 106 mEq/L (98-107); Glucose 107 mg/dL (70-105); Osmolality,Calculated 291 (280-300); Sodium 140 mEq/L (136-145); eGFR For Non-African Americans > 60 (> 60)
[2018-09-01] MEDS: cephALEXin 500 MG CAPSULE PO SCH (07:51)
[2018-09-01] MEDS: Aspirin Enteric Coated 81 MG Tablet PO SCH (07:51)
--- NOTE | 2018-09-01 08:40 | Event Note ---
Date of Encounter: 09/01/18 Time of Encounter: 08:15 - Cardiology Event Note LHC planned for today for staged PCI. Ms. Lozano denies chest pain overnight. No problem noted with right femoral access site. Patient denies questions about LHC. Vital Signs Temp Pulse Resp BP Pulse Ox 09/01/18 07:41 97.9 F 09/01/18 06:00 62 17 113/54 97 09/01/18 05:00 79 17 114/56 97 09/01/18 04:00 66 17 121/62 96 09/01/18 03:50 65 09/01/18 03:40 98.4 F 09/01/18 03:00 62 17 113/62 97 09/01/18 02:00 64 18 111/55 96 09/01/18 01:00 74 18 122/53 97 09/01/18 00:00 67 15 115/55 96 08/31/18 23:59 65 08/31/18 23:51 98.0 F 08/31/18 23:00 62 11 111/50 92 08/31/18 22:00 71 15 114/55 90 08/31/18 21:00 67 16 108/56 93 08/31/18 20:21 98.3 F 08/31/18 20:00 75 19 121/62 93 08/31/18 19:50 78 08/31/18 19:00 86 16 109/53 92 08/31/18 18:00 78 20 96/62 92 08/31/18 17:00 130 16 114/54 94 08/31/18 16:33 73 16 103/49 91 08/31/18 16:10 98.8 F 08/31/18 15:00 77 20 102/52 90 08/31/18 13:00 79 20 93/48 91 08/31/18 12:15 98.8 F 08/31/18 12:00 77 20 110/61 90 08/31/18 11:00 91 20 98/48 91 08/31/18 10:00 71 14 95/44 94 08/31/18 09:00 71 16 100/49 94 Intake and Output 08/31/18 09/01/18 09/01/18 23:59 07:59 15:59 Intake Total 1000 / 1000 Output Total 400 / 400 400 / 400 Balance 600 / 600 -400 / -400 Intake: Oral 1000 / 1000 Output: Urine 400 / 400 400 / 400 Other: Meal Dinner Percent of Meal Consumed 50% Weight 74.2 kg Blood Glucose* 111 109 Patient Weight 09/01/18 23:59 Weight 74.2 kg
[2018-09-01] MEDS ORDERED: *HR* Heparin 10,000 UNIT/10 ML VIAL ONE (11:02)
[2018-09-01] MEDS ORDERED: Nitroglycerin 1,000 MCG/10 ML VIAL IV ONE (11:02)
[2018-09-01] MEDS ORDERED: ISOVUE-370 200 ML INFUS..BTL ONE (11:02)
[2018-09-01] MEDS ORDERED: 0.9 % Sodium Chloride 1,000 ML ONE ×2 (11:02→11:14)
[2018-09-01] MEDS ORDERED: Heparin 1,000 UNITS/500 mL 500 ML ONE (11:02)
[2018-09-01] MEDS ORDERED: *HR* Bivalirudin 250 MG VIAL IVC ONE (11:11)
--- NOTE | 2018-09-01 11:21 | Pre-Sedation Evaluation ---
Pre-sedation evaluation - Pre-sedation checklist Date of procedure: 09/01/18 Procedure: LHC/staged PCI Recent Vitals: Last Vital Signs Temp 97.9 F 09/01/18 07:41 Pulse 77 09/01/18 10:00 Resp 17 09/01/18 10:00 BP 116/45 09/01/18 10:00 Pulse Ox 100 09/01/18 10:00 H&P (including ROS) documented in medical record: Yes Previous reaction to sedatives/anesthetics: No Dietary Status: NPO after Midnight Airway Assessment: Patient can open mouth completely, TMJ function normal, Micrognathia (under-bite, receding chin) absent, Neck with adequate range of motion Dentition: No loose teeth or bridges Possible difficult airway: No ASA Classification *see protocol: CLASS II-Mild systemic disease Plan of Care: Pt appropriate candidate for procedure/moderate/conscious sedation, Risks/benefits of procedure/sedation discussed w/ patient/family Cardiac Registry (Cardio Only) - Functional Capacity Functional Capacity: < 4 METS - Clincal Frailty Scale Clinical Frailty Scale: Mildly Frail
[2018-09-01] MEDS ORDERED: *HR* Midazolam HCl 2 MG/2 ML VIAL ONE (11:25)
[2018-09-01] MEDS ORDERED: *HR* FentaNYL (PF) 100 MCG/2 ML VIAL ONE (11:26)
--- NOTE | 2018-09-01 12:16 | Invasive Diagnostic Lab Proc ---
Name: Bre Lozano Date of Study: 09/01/2018 Date: 1935 Ht: 62.9in Medical Record#: [id number] Age: 82 Wt: 163.80lb Gender: Female BSA: 1.77 Order #: [id number] BMI: 29.1 Physicians Procedure Physician: Marlene Monahan MD, [facility] Referring MD: Referring MD: Staff Name Position Time In Delfina Romero RN Single Ending Machine Operator 11:31 AM Dar Brar RN Monitor 11:31 AM Jc Enriquez RT (R) Scrub 11:31 AM Indications Indication STaged PCI Procedures Performed Procedure PRQ CARD CHARLINE STENT W/ANGIO 1 VSL Pre-Procedure Checklist Informed consent is complete signed and on chart. H&P is on chart. ID band is on and ID verified with patient. Patient NPO for procedure The procedure was described for the patient and questions were answered. Blood Pressure: 116/58 ECG is on chart. Plan of Care Patient will tolerate the procedure without complications. Adequate level of comfort will be maintained. Hemodynamics will remain stable Patient will recover from procedure without complications. Respiratory function will be maintained. Cardiac rhythm will remain stable. Patient temperature will be maintained. Patient and/or family have verbalized understanding of the procedure. Patient Education Chief Complaint/Reason for Test: Cardiac Cath Developmental Category: Geriatric (65+ years) Developmentally Appropriate for Age: Yes Learning Barriers: None Education Needs: Procedure Education Method: Written Information Taught: Cardiac Cath Educational Evaluation: Able to repeat information Intravenous Access Time IV Size Location DC'd Fluid/Drip Rate Units RN 20g 1 1/4" Patent On Arrival Lt Hand 0.9NaCl 20g 1 1/4" Patent On Arrival Lt Antecubital Allergies Ztchfel-Yfp-Eqp Reductase Inhibitor rosuvastatin Vital Signs Time BP (mmHg) HR (bpm) O2 Sat. RR (bpm) LOC 10:44 AM 116 / 58 57 97 % 16 5 = Fully awake and oriented or at pre-proc level 11:27 AM / % 5 = Fully awake and oriented or at pre-proc level 11:27 AM / % 4 = Oriented but drowsy 11:42 AM / % 4 = Oriented but drowsy 11:22 AM 155 / 78 % 11:27 AM 146 / 74 69 97 % 17 11:32 AM 135 / 64 64 95 % 11 11:37 AM 130 / 70 65 95 % 14 11:42 AM 131 / 64 65 96 % 14 11:47 AM 137 / 71 71 96 % 16 11:52 AM 138 / 69 75 96 % 16 Procedural Medications Time Medication Dose Units Method Given By 11:28 AM Oxygen 2 L/min nasal cannula Delfina Romero RN 11:28 AM Versed 1 mg Intravenous Delfina Romero RN 11:28 AM Fentanyl 25 mcg Intravenous Delfina Romero RN 11:33 AM Lidocaine 2% 20 ml Subcutaneous Marlene Monahan MD, [facility] 11:35 AM Angiomax 0.75mg/kg bolus: 11 ml Intravenous Delfina Romero RN 11:35 AM Angiomax 1.75mg/kg/hr: 26 ml Intravenous Delfina Romero RN 11:51 AM Nitroglycerin 200 mcg Intracoronary Marlene Monahan MD, [facility] ASA Classification: CLASS II- Mild systemic disease (i.e. well-controlled diabetes, hypertension, asthma, cigarette smoking) Juhi Score Preprocedure Postprocedure Activity 2- Moves 4 extremities sustained head lift Activity 2- Moves 4 extremities sustained head lift Circulation 2- SBP +/= 20 points of pre-anesthetic level Circulation 2- SBP +/= 20 points of pre-anesthetic level Consciousness 2- Awake and alert oriented x 3 Consciousness 2- Awake and alert oriented x 3 O2 Saturation 2- Able to maintain O2 satruation of 92% on room air O2 Saturation 2- Able to maintain O2 satruation of 92% on room air Respiratory 2- Able to deep breathe and cough well Respiratory 2- Able to deep breathe and cough well Total Score 10 Total Score 10 Contrast Agent: Isovue Diagnostic Contrast: 84 ml Total Contrast: 84 ml Fluoro Dose: 4956 mGy Procedure Log Time Note Enter By 11:20 AM Case Start 11:20 AM CathStat 11:20 AM Pt arrived to clinical laboratory scientist 2 at 11:20 [place]ed[place] 11:20 AM Patient charges- Angio tray pack, Navilyst 3mm J, Pulse Oximetry and ACIST tubing and transducer cedwards 11:20 AM IV Supplies used: J loop Angio Cath. cedwards 11:20 AM Physician arrived 11:20 cedwards 11:20 AM ASA Class CLASS II- Mild systemic disease (i.e. well-controlled diabetes, hypertension, asthma, cigarette smoking) cedwards 11:20 AM Hair removed from procedure site in procedure lab using clippers. Bilateral groin prepped with Chloraprep by Jc Enriquez (R), then patient was draped. Skin intact. cedwards 11:20 AM Jagdish and chris completed [place] 11:20 AM Sign in performed according to hospital policy. Informed consent was obtained. cedwards 11:20 AM Procedure start 11:20 cedwards 11:21 AM Vitals capture started with the following parameters, Patient=Adult, Interval=5 min, Initial Nzbbxqio=248 mmHg, Deflation Rate=5 mmHg, Cuff placed on Right Arm 11:22 AM MZFZ=772/78 mmhg 11:25 AM Recorded ECG: HR=72 Condition=Condition 1 11: AM Time: : Patient comfortable and pain free: Yes cedwards 11: AM HR=69 bpm, PZEH=561/74 mmhg, SpO2=97.0 %, Resp=17 B/min 11:27 AM Time: 11:LOC: 5 = Fully awake and oriented or at pre-proc level cedwards 11: AM Time: 11: Oxygen on at 2 L/min per nasal cannula by Delfina Romero RN ced[place] 11:28 AM Time: 11:28 Versed 1 mg Intravenous Given by Delfina Romero RN [place] 11:28 AM Time: 11:28 Fentanyl 25 mcg Intravenous Given by Delfina Romero RN [place] 11:31 AM Delfina Romero RN Position: Single Ending Machine Operator Time in: 11:31 cedwards 11:31 AM Dar Brar RN Position: Monitor Time in: 11:31 ced[place] 11:32 AM Jc Enriquez (R) Position: Scrub Time in: 11:31 ced[place] 11:32 AM HR=64 bpm, GHRN=092/64 mmhg, SpO2=95.0 %, Resp=11 B/min 11:32 AM Clinical Presentation: Unstable angina cedwards 11:32 AM Time out was performed according to hospital policy. Conscious sedation and anesthesia was achieved (see medication log with in this report above) cedwards 11:33 AM Time: 11:33 20 ml Lidocaine 2% to right groin Subcutaneous Given by Marlene Monahan MD, [facility] cedwards 11:34 AM Access obtained by percutaneous puncture. 6Fr 10cm Terumo [place] sheath placed in right Femoral artery. [id number] ced[place] 11:34 AM 6Fr XB LAD 3.5 Cordis guide catheter was used to cannulate the PCI vessel successfully. reused? No ced[place] 11:35 AM .014 [place] XT 190cm guide wire across target lesion- successful. reused? No c[place] 11:35 AM Time: 11:35 Angiomax 0.75mg/kg bolus: 11 ml Intravenous Given by Delfina Romero RN Arreola pump c[place] 11:36 AM Time: 11:35 Angiomax 1.75mg/kg/hr: 26 ml Intravenous Given by Delfina Romero RN Arreola pump [place] 11:36 AM Lesion found in Mid LAD. Pre Stenosis: 85 Pre BRIANA Flow: 3: Complete and Brisk Flow/Perfusion cedwards 11:37 AM HR=65 bpm, LAVW=807/70 mmhg, SpO2=95.0 %, Resp=14 B/min 11:38 AM Recorded Pressure: Ao, HR=66, Condition=Condition 1 (Aorta) Ao 122/48/77 11:41 AM Guide wire removed intact. Unable to cross cedwards 11:42 AM Time: 11:27 Patient comfortable and pain free: Yes ced[place] 11:42 AM HR=65 bpm, PZMM=381/64 mmhg, SpO2=96.0 %, Resp=14 B/min 11:42 AM Time: 11:27LOC: 4 = Oriented but drowsy c[place] 11:42 AM .014 [place] 190cm guide wire across target lesion- successful. reused? No c[place] 11:43 AM Inflation device was opened. ced[place] 11:43 AM 2.0 mm x 15 mm Emerge Monorail balloon across target lesion- successful. reused? No [place] 11:45 AM Balloon inflated @ 8 kacy for 20 seconds ced[place] 11:46 AM Balloon inflated @ 8 kacy for 20 seconds ced[place] 11:47 AM HR=71 bpm, ZFFI=483/71 mmhg, SpO2=96.0 %, Resp=16 B/min 11:47 AM 2.25mm x 28mm Synergy drug-eluting stent across target lesion- successful Lot #[id number] c[place] 11:50 AM Stent deployed @ 12 kacy for 30 seconds ced[place] 11:51 AM Stent delivery system removed intact. ced[place] 11:51 AM Recorded Pressure: Ao, HR=75, Condition=Condition 1 (Aorta) Ao 125/49/79 11:51 AM Time: 11:51 Nitroglycerin 200 mcg Intracoronary Given by Marlene Monahan MD, [facility] [place] 11:52 AM HR=75 bpm, XQES=109/69 mmhg, SpO2=96.0 %, Resp=16 B/min 11:52 AM Guide wire removed intact. c[place] 11:52 AM Guide catheter removed intact. c[place] 11:53 AM Femoral Angiogram performed ced[place] 11:54 AM Procedure completed at 11:54 09/01/2018 c[place] 11:54 AM Did you address BRIANA flow and Dominance? Yes c[place] 11:55 AM Sign out completed: Radiation Dose 446.81 mGy, 4955.62 cGy/cm2 Fluoro Time: 7.5 Isovue 370 - 200ml contrast 84 ml given by Marlene Monahan MD, [facility]. Complications: None. 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 Cardiac Rehab Consult needed: YesConfirmed administered medications: Yes c[place] 11:55 AM Isovue 370 - 200ml,1 Bottle(s) used. cedwards 11:55 AM Sheath left in place to be pulled on floor/holding areaV+Pad c[place] 11:55 AM Estimated Blood Loss: minimal c[place] 11:55 AM Post ECG NSR [place] 11:55 AM Post Blood Pressure 138/69 [place] 11:55 AM Information taught PCI [place] 11:55 AM Education needs Procedure, Plan of Care, and Disease Process c[place] 11:56 AM Learning barriers :None c[place] 11:56 AM Education Methods Verbal [place] 11:56 AM Education evaluation Able to repeat information c[place] 11:56 AM Site status No bleeding/hematoma - Rt Groin as reported by Jc Enriquez RT (R) at 11:56 c[place] 11:56 AM Opsite applied c[place] 11:56 AM Plavix, Effient or Brilinta given No ced[place] 11:57 AM Time: 11:42 Patient comfortable and pain free: Yes ced[place] 11:57 AM Time: 11:42LOC: 4 = Oriented but drowsy [place] 11:58 AM Angiomax stopped [place] 11:58 AM Family placed in consult room. ced[place] 11:58 AM Complications: None ced[place] 12:03 PM Report given to Nona VASQUEZ Pt taken to ICU Room #11. 12:03 ced[place] 12:03 PM Patient out of room: 12:03 cedwards Complications Complication None None Hemodynamics Pressures Site Systolic/A Wave Diastolic/V Wave Mean AO 122 48 77 AO 125 49 79 Post Procedure Information Blood Pressure: 138/69 mmHg Rhythm: NSR Post procedural instructions were given Site Checks Time Location Status Staff Sheath In? Note 11:56 AM Rt Groin No bleeding/hematoma Jc Enriquez RT (R) Yes Pulses Time Site Pre-Procedure Post-Procedure Note Bilateral PT 1+ 1+ Bilateral DP 2+ 2+ Bilateral radial 2+ 2+ Updated by Dar Brar RN on 09/01/2018 12:06:14 PM electronically signed on 09/01/2018 12:07:14 PM with status of Final
--- NOTE | 2018-09-01 16:35 | Electrocardiograph Report ---
[address] [place], [place] [address] Test Date: 2018-08-30 Pat Name: Bre Lozano Department: [id number] Room: 11 Gender: F Equity Research Analyst: : 1935 Requested By: Ritchie Elizabeth Order Number: [id number] Reading MD: Michael Allan Measurements Intervals [place] Rate: 77 P: 46 SC: 184 QRS: -105 QRSD: 155 T: 54 QT: 453 QTc: 513 Interpretive Statements ACUTE STEMI Acute inferolateral infarct with posterior wall involvement Sinus rhythm Right bundle branch block Electronically Signed On 09-01-2018 16:33:57 EST by Michael Allan
--- NOTE | 2018-09-01 16:50 | Electrocardiograph Report ---
[address] [place], [place] [address] Test Date: 2018-08-30 Pat Name: Bre Lozano Department: 109 Room: 11 Gender: F Operations Team Leader: : 1935 Requested By: Marlene Monahan Order Number: [id number] Reading MD: Michael Allan Measurements Intervals [place] Rate: 82 P: 73 NE: 216 QRS: 263 QRSD: 146 T: -29 QT: 417 QTc: 456 Interpretive Statements SINUS RHYTHM WITH SINUS ARRHYTHMIA WITH FIRST DEGREE AV BLOCK MARKED POSTERIOR QRS AXIS RIGHT BUNDLE BRANCH BLOCK POSSIBLE ANTERIOR MYOCARDIAL INFARCTION, OF INDETERMINATE AGE INFEROPOSTERIOR MYOCARDIAL INFARCTION, OF INDETERMINATE AGE Electronically Signed On 09-01-2018 16:49:33 EST by Michael Allan
[2018-09-01] MEDS ORDERED: diazePAM 5 MG TABLET PO PRN (17:08)
[2018-09-01] MEDS ORDERED: Benzonatate 100 MG CAPSULE PO PRN (17:08)
[2018-09-01] MEDS ORDERED: Nitroglycerin 0.4 MG TAB.SUBL SL PRN (17:08)
[2018-09-01] MEDS: *HR* Heparin 5,000 UNIT/ML VIAL SQ SCH (18:50)
[2018-09-01] MEDS ORDERED: cephALEXin 500 MG CAPSULE PO SCH (21:00)
[2018-09-02 04:15] VITALS: BP 120/67
[2018-09-02] MEDS: *HR* Heparin 5,000 UNIT/ML VIAL SQ SCH (05:39)
[2018-09-02] MEDS ORDERED: Ondansetron 4 MG/2 ML VIAL ONE ×2 (06:11→07:41)
[2018-09-02] MEDS ORDERED: *HR* Heparin 5,000 UNIT/ML VIAL IVP PRN ×2 (07:21)
[2018-09-02] MEDS ORDERED: *HR* Heparin 5,000 UNIT/ML VIAL IVP ONE (07:21)
[2018-09-02] MEDS ORDERED: Heparin 25,000 UNIT/500 ML D5W 25,000 UNIT/500 ML BAG IVC SCH (07:30)
[2018-09-02] MEDS ORDERED: Nitroglycerin 25 MG/250 ML INFUS..BTL IVC SCH (07:30)
[2018-09-02] MEDS ORDERED: Nitroglycerin 25 MG/250 ML INFUS..BTL IVC ONE (07:37)
[2018-09-02] MEDS ORDERED: Ondansetron 4 MG/2 ML VIAL IVP ONE (07:41)
[2018-09-02 07:45] LABS: Basophils # 0.1 K/mcL (0.0-0.2); Basophils % 0.5 %; Eosinophils # 0.2 K/mcL (0.0-0.6); Eosinophils % 1.2 %; Hematocrit 34.5 % (35.3-44.9); Hemoglobin 11.4 g/dL (11.5-15.4); Immature Granulocytes % 0.5 % (0-4); Lymphocytes # 2.8 K/mcL (0.6-4.6); Lymphocytes % 18.8 %; Mean Corpuscular Hemoglobin 32.7 pg (28.0-33.3); Mean Corpuscular Volume 98.9 fL (83.0-100.0); Mean Platelet Volume 10.9 fL (9.4-12.4); Monocytes # 1.3 K/mcL (0.0-1.3); Neutrophils # 10.4 K/mcL (1.6-8.9); Platelet Count 302 K/mcL (140-400); Red Blood Count 3.49 M/mcL (3.82-4.97); Red Cell Distribution Width 13.7 % (11.5-14.5)
[2018-09-02] MEDS ORDERED: *HR* Heparin 10,000 UNIT/10 ML VIAL ONE (07:47)
[2018-09-02] MEDS ORDERED: ISOVUE-370 200 ML INFUS..BTL ONE (07:47)
[2018-09-02] MEDS ORDERED: 0.9 % Sodium Chloride 1,000 ML ONE ×2 (07:47→08:22)
[2018-09-02] MEDS ORDERED: Heparin 1,000 UNITS/500 mL 500 ML ONE (07:47)
[2018-09-02] MEDS ORDERED: Nitroglycerin 1,000 MCG/10 ML VIAL IV ONE (07:48)
[2018-09-02 07:50] LABS: Prothrombin Time 11.6 Seconds (9.4-12.1)
[2018-09-02] MEDS ORDERED: Tirofiban 12.5 MG/250ML 12.5 MG/250 ML BAG ONE (08:11)
[2018-09-02] MEDS ORDERED: D5% in Water 250 ML ONE (08:21)
[2018-09-02] MEDS ORDERED: Aspirin Enteric Coated 81 MG Tablet PO SCH (09:00)
--- NOTE | 2018-09-02 09:10 | Pre-Sedation Evaluation ---
Pre-sedation evaluation - Pre-sedation checklist Date of procedure: 09/01/18 Procedure: LHC/staged PCI Recent Vitals: Last Vital Signs Temp 98.2 F 09/02/18 04:00 Pulse 63 09/02/18 04:00 Resp 16 09/02/18 04:00 BP 120/67 09/02/18 04:00 Pulse Ox 98 09/02/18 04:00 H&P (including ROS) documented in medical record: Yes Previous reaction to sedatives/anesthetics: No Dietary Status: NPO after Midnight Dentition: No loose teeth or bridges ASA Classification *see protocol: CLASS V-Morbid complications, operation only hope of survival, [id number] to any of the above to indicate emergent Plan of Care: Pt appropriate candidate for procedure/moderate/conscious sedation, Risks/benefits of procedure/sedation discussed w/ patient/family Cardiac Registry (Cardio Only) - Functional Capacity Functional Capacity: Unknown - Clincal Frailty Scale Clinical Frailty Scale: Vulnerable
--- NOTE | 2018-09-02 09:38 | Event Note ---
Date of Encounter: 09/02/18 Time of Encounter: 07:35 This morning it was reported that the patient was experiencing chest pain for which serial EKGs were being done. One of the EKGs demonstrated sinus rhythm with ST depression in lead II, ST elevation and leads V1 and V2 concerning for STEMI. Cardiology had been called and recommended starting of a heparin drip, nitroglycerin drip, stat echocardiogram, stat labs. They also recommended to to call bed management for stat STEMI if chest pain did not improve. At approximately 0735 rapid response was called due to the patient due to being diaphoretic and in an acute distress. The patient then became unresponsive and CPR was initiated. During CPR the patient had PEA. Respiratory therapy was called. The patient was subsequently intubated. In total the patient received 5 rounds of CPR. She was given epinephrine, amiodarone, IV fluid bolus. The patient lost IV access so an IO was placed. During this time a stat page for STEMI was called. The family was called 2 different times without answer, however they called the ICU back and they were informed of the critical status of the patient. After she regained a pulse she was then transferred to the [facility], with the [facility] nurses and nurse practitioners at bedside.
--- NOTE | 2018-09-02 09:41 | Event Note ---
Date of Encounter: 09/02/18 Time of Encounter: 08:00 - Cardiology Event Note 82yoF initially presented with STEMI sp LCX PCI and staged PCI of LAD 09/[address] Monahan. Paged at 717 by hospitalist, patient having chest pain and EKG changes in V1 and V2 suspicious for ST elevation. Discussed heparin drip and u se of NTG, and asked hospitalist to send the pictures of the EKG. Received series of EKGs 724-8 and replied if chest pain no better to send the STEMI page via bed management. On the way to see patient, STEMI page was sent out and also paged by ICU nurse. While discussing patient status over phone, was informed patient went into PEA arrest and underwent ACLS and intubation. geophysical laboratory director staff were at bedside ready to take patient to the lab once regaining a pulse. Upon ROSC, patient sent immediately to the geophysical laboratory chief. Difficulty obtaining pulse check in geophysical laboratory chief but verified pulse via doppler ultrasound. I ordered dopamine drip to be started. Patient prepped and draped in sterile fashion quickly and access was obtained in the right femoral artery. Attached to hemodynamic monitor showed patient had no meaningful pulsatile flow and ACLS was started again for PEA arrest. ACLS continued for 30 minutes without ROSC and patient was declared at 0841. Dr. Monahan present during ACLS and informed patient's family of events.
--- NOTE | 2018-09-02 09:44 | Death Note ---
Pronouncement Note - Date and Time of Date of : 09/02/18 Time of : 08:41 - PCOD Preliminary cause of : Cardiac arrest - Additional Data Confirmation of : no pulse, no heart sounds Family: at bedside, contacted Additional persons at bedside: valeria Attending/PCP notified?: Yes Attending physician: Marlene Monahan Was code activated?: Yes Autopsy requested?: No law examiner notified?: No Organ bank notified?: No
--- NOTE | 2018-09-02 09:47 | Death Note ---
Discharge Sum: Summary - Date and Time Date of admission: 08/30/18 05:52 Date of : 09/02/18 Time of : 08:41 - Summary Details: 82yoF initially presented with STEMI sp LCX PCI 08/30 and staged PCI of LAD 09/[address] Monahan. Received page at 717 09/02, discussed with hospitalist that patient having chest pain and EKG changes in V1 and V2 suspicious for ST elevation. Discussed heparin drip and use of NTG, and EKG pictures were requested. I immediately received series of EKGs 724 with repeat 728 and I replied if continued chest pain to send the STEMI page via bed management. On the way to see patient, STEMI page was sent out and also paged by ICU nurse. While discussing patient status over phone, was informed patient went into PEA arrest and underwent ACLS and intubation. slab tripper staff were at bedside ready to take patient to the lab once regaining a pulse. Upon ROSC, patient sent immediately to the organic lab worker. Difficulty obtaining pulse check in organic lab worker but verified pulse via doppler ultrasound. I ordered dopamine drip to be started. Patient prepped and draped in sterile fashion quickly and access was obtained in the right femoral artery. Attached to hemodynamic monitor showed patient had no meaningful pulsatile flow and ACLS was started again for PEA arrest. ACLS continued for 30 minutes without ROSC and patient was declared at 0841. Dr. Monahan present during ACLS and informed patient's family of events. - Additional Data Confirmation of as documented by pronouncing clinician: no pulse, no heart sounds Family: at bedside Additional persons at bedside: valeria Attending/PCP notified?: Yes Attending physician: Marlene Monahan Was code activated?: Yes Autopsy requested?: No forms examiner notified?: No Organ bank notified?: No Hospice patient?: No Discharge Sum: Diag - PCOD Probable Cause of : Cardiac arrest Discharge Sum: Prov - Provider Primary care physician: PCP NONE Admitting clinician: Marlene Monahan Attending physician on admission: Marlene Monahan Consults: 08/30/18 06:37 Consult to Cardiac Rehabilitation-Phase1 [CONS] Routine Comment: Reason for Consult: AMI Call Completed: Yes Consult to Nurse Navigator [CONS] Routine Comment: Pronouncing clinician: Johnson Robledo
--- NOTE | 2018-09-02 10:07 | Event Note ---
Date of Encounter: 09/02/18 Time of Encounter: 07:35 - Cardiology Event Note Responded to code blue called overhead. Critical care team and hospitalist at bedside. ACLS in progress. Patient being intubated by critical care team. Discussed with dry kiln burner, if patient achieves ROSC, take patient emergently to labor custodian. Upon ROSC, patient was transported to labor custodian with ICU RNs, pharmacy, and labor custodian staff. In route to labor custodian, patient with bradycardia, HRs 30s, 1 amp atropine given IO. at bedside in labor custodian.
[2018-09-02] MEDS ORDERED: *HR* EPINEPHrine 1 MG/10 ML SYRINGE IVP ONE ×3 (10:35→12:22)
[2018-09-02] MEDS ORDERED: *HR* Amiodarone Premix 360 MG/200 ML BAG IVC ONE (10:35)
[2018-09-02] MEDS ORDERED: *HR* Amiodarone 150 MG/3 ML VIAL IVPB ONE (10:35)
[2018-09-02] MEDS ORDERED: *HR* Vasopressin 20 UNIT/ML VIAL IVC ONE (10:35)
[2018-09-02] MEDS ORDERED: *HR* Atropine Sulfate 1 MG/10 ML SYRINGE IV ONE (10:35)
--- NOTE | 2018-09-02 10:47 | Invasive Diagnostic Lab Proc ---
Name: Bre Lozano Date of Study: 09/02/2018 Date: 1935 Ht: 63.0in Medical Record#: [id number] Age: 82 Wt: 160.94lb Gender: Female BSA: 1.76 Order #: [id number] BMI: 28.52 Physicians Procedure Physician: Johnson Robledo MD, [facility] Referring MD: Referring MD: Staff Name Position Time In Jc Enriquez RT (R) Scrub 08:11 AM Delfina Romero RN Multimedia Teacher 08:11 AM Leticia Sparrow RN Multimedia Teacher 08:11 AM Nirmala Barnett RT Monitor 08:11 AM Giselle Holder RT (R) RT 08:11 AM Kianna Hoffmann RT (R) RT 08:11 AM Indications Indication STEMI Procedures Performed Procedure ARTERIAL LINE INSERTION CARDIOPULMONARY RESUSCITATION Pre-Procedure Checklist Informed consent is complete signed and on chart. H&P is on chart. ID band is on and ID verified with patient. Patient NPO for procedure The procedure was described for the patient and questions were answered. ECG is on chart. Plan of Care Patient will tolerate the procedure without complications. Adequate level of comfort will be maintained. Hemodynamics will remain stable Patient will recover from procedure without complications. Respiratory function will be maintained. Cardiac rhythm will remain stable. Patient temperature will be maintained. Patient and/or family have verbalized understanding of the procedure. Patient Education Intravenous Access Time IV Size Location DC'd Fluid/Drip Rate Units RN 09:41 AM 16g IO Right Leg Allergies Ucnxhyd-Eoo-Qib Reductase Inhibitor rosuvastatin Procedural Medications Time Medication Dose Units Method Given By 08:15 AM Epinephrine 1 mg Delfina Traylor RN 08:38 AM Bicarb 1 amp IO Delfina Romero RN 08:37 AM Vasopressin 40 units Delfina Traylor RN 08:20 AM Dopamine 10 mcg/min Delfina Traylor RN 08:28 AM Epinephrine 1 mg Delfina Traylor RN 08:31 AM Epinephrine 1 mg Delfina Traylor RN 08:35 AM Epinephrine 1 mg Delfina Traylor RN ASA Classification: CLASS V- Morbid ompications, the operation is the only hope for survival (i.e. ruptured abd. aortic aneurysm) Emergent Procedure: ASA score is assumed Juhi Score Preprocedure Postprocedure Activity 1- Moves 2 extremities sustained head lift Activity 0- Unable to move extremities or lift head Circulation 0- SBP +/= 50 points of pre-anesthetic level Circulation 0- SBP +/= 50 points of pre-anesthetic level Consciousness 0- Non-responsive Consciousness 0- Non-responsive O2 Saturation 0- O2 saturation 90% even with O2 supplement O2 Saturation 0- O2 saturation 90% even with O2 supplement Respiratory 0- Apneic requires ventilator or assisted respiration Respiratory 0- Apneic requires ventilator or assisted respiration Total Score 1 Total Score Contrast Agent: Isovue Procedure Log Time Note Enter By 08:11 AM patient entered the room, respiratory therapists and international representative Dr. Robledo present. Pt arrived to lab intubated. 08:11 AM Leticia Sparrow RN Position: Multimedia Teacher Time in: 08:11 08:11 AM Kianna Hoffmann RT (R) Position: RT Time in: 08:11 08:11 AM Nirmala Barnett RT Position: Monitor Time in: 08:11 08:11 AM Jc Claire RN assisting with code documentation 08:11 AM Jc Enriquez RT (R) Position: Scrub Time in: 08:11 08:11 AM Repiratory bagging patient 08:11 AM Giselle Holder RT (R) Position: RT Time in: 08:11 08:11 AM Delfina Romero RN Position: Multimedia Teacher Time in: 08:11 08:12 AM ASA Class CLASS V- Morbid ompications, the operation is the only hope for survival (i.e. ruptured abd. aortic aneurysm) 08:13 AM Procedure start 08:13 08:13 AM Time out was performed according to hospital policy. Conscious sedation and anesthesia was achieved (see medication log with in this report above) 08:14 AM pulse check, patient pulseless, CPR started 08:14 AM Code procedures initiated 08:14 08:15 AM Epinephrine 1 mg IO Given by Delfina Romero RN 08:15 [email or web address] AM Time: 08:20 Dopamine 10 mcg/min IO Given by Delfina Romero RN Arreola pump 08:[address] Marlene Monahan at bedside at 8:20 [email or web address] 08:21 AM Access obtained by percutaneous puncture. 6Fr 10cm Terum[place] sheath placed in right Femoral artery. [id number] [email or web address] 08:24 AM pulse check, asystole CPR resumed 08:24 [email or web address] 08:28 AM Epinephrine 1 mg IO Given by Delfina Romero RN 08:28 [email or web address] 08:29 AM pulse check PEA, CPR resumed [email or web address] 08:30 AM ABG drawn [email or web address] 08:30 AM Recorded Pressure: ON=091, Condition=Condition 1 08:31 AM pulse check asystole CPR resumed [email or web address] 08:31 AM Epinephrine 1 mg IO Given by Delfina Romero RN 08:31 [email or web address] 08:31 AM Recorded Pressure: Ao, HR=40, Condition=Condition 1 (Aorta) Ao 102/1/38 08:32 AM Recorded Pressure: Ao, KJ=682, Condition=Condition 1 (Aorta) Ao 113/3/40 08:33 AM pulse check asystole CPR resumed [email or web address] 08:33 AM Recorded Pressure: Ao, HR=32, Condition=Condition 1 (Aorta) Ao 54/6/21 08:34 AM Recorded Pressure: Ao, HR=91, Condition=Condition 1 (Aorta) Ao 96/-6/31 08:35 AM pulse check PEA CPR resumed [email or web address] 08:35 AM Recorded Pressure: Ao, HR=62, Condition=Condition 1 (Aorta) Ao 66/-2/24 08:35 AM Time: 08:35 Epinephrine 1 mg Intravenous Given by Leticia Sparrow RN 08:37 AM PEA, CPR resumed [email or web address] 08:37 AM Time: 08:37 Vasopressin 40 units Intravenous Given by Delfina Romero RN 08:38 AM Time: 08:38 Bicarb 1 amp Intravenous Given by Delfina Romero RN 08:38 AM Recorded Pressure: Ao, HR=88, Condition=Condition 1 (Aorta) Ao 91/2/36 08:39 AM Asystole [email or web address] 08:39 AM Recorded Pressure: Ao, HR=59, Condition=Condition 1 (Aorta) Ao 88/-3/30 08:39 AM Recorded Pressure: Ao, HR=80, Condition=Condition 1 (Aorta) Ao 93/2/38 08:41 AM Code called by Dr. Meena levin 08:41 AM Recorded Pressure: Ao, HR=37, Condition=Condition 1 (Aorta) Ao 79/8/34 08:41 AM Recorded Pressure: Ao, HR=51, Condition=Condition 1 (Aorta) Ao 24/06/15 08:42 AM Procedure completed at 08:42 [email or web address] cath aborted d/t patient in cardiac arrest followed by patient expiring [email or web address] 08:52 AM LOOP notified. Pt not a candidate for retrieval will progress with transporting patient to ICU. [email or web address] 09:[address] Monahan spoke with family in consult room [email or web address] 09:13 AM Pt out of room and transported to ICU 11 [email or web address] Hemodynamics Pressures Site Systolic/A Wave Diastolic/V Wave Mean AO 102 1 38 AO 113 3 40 AO 54 6 21 AO 96 -6 31 AO 66 -2 24 AO 91 2 36 AO 88 -3 30 AO 93 2 38 AO 79 8 34 AO 21 11 15 Post Procedure Information Pulses Updated by RT Melyssa (R) on 09/02/2018 10:37:07 AM electronically signed on 09/02/2018 10:39:04 AM with status of Final
[2018-09-02] MEDS ORDERED: *HR* Magnesium Sulfate 2 GM/50 ML PIGGYBACK IVPB ONE (12:22)
--- NOTE | 2018-09-02 14:08 | Event Note ---
Date of Encounter: 09/02/18 Time of Encounter: 06:55 - Cardiology Event Note ICU called: moderate chest pain/burning/gas early am, w/o significant relief by NTG SL. Normal BP and HR, no O2 requirement. No events on tele. - Review of ECG suspected minimal/mild DAVE V1-2/3, new c/w 08/31 ECG in [facility]. (STEMI 08/30 CHARLINE-LCx, then stage CHARLINE-LAD 09/01.) - Asked to start heparin drip, NTG drip, stat repeat ECG and stat TTE, CBC, call interventional seasonal sales associate. - Called ICU back 5 min and was notified still DAVE V1-2 on ECG. Called and communicated with Dr Robledo.
[2018-09-02 15:34] LABS: ABG Base Excess -22 mEq/L (-2 to 3); ABG HCO3 12 mEq/L (21-27); ABG Oxygen Saturation 84 % (95-98); ABG PCO2 65 mmHg (35-45); ABG PH 6.86 pH Units (7.32-7.45); ABG PO2 85 mmHg (85-104); ABG TCO2 14 mEq/L (20-26)
--- NOTE | 2018-09-02 17:19 | Procedure Note ---
Date of procedure: 09/02/18 Pre-op diagnosis: Acute respiratory failure and cardiac arrest Post-op diagnosis: same Procedure: This patient was in ICU for STEMI and she had CODE BLUE during the CODE BLUE patient needed to be intubated which was done by me and this was done during that time and with [facility] help and patient was easily intubated with size 7.5 ET tube and was secured by the respiratory therapist at the bedside. Change in capnometer and condensation in the 2 with bilateral auscultation breath sounds confirmed placement of the ET tube. Procedure was done without immediate complications. Anesthesia: none Surgeon: Manuela Munoz Was there an cable splicer assistant present: No Estimated blood loss (cc): 0 Specimen: 0 Condition: critical Disposition: ICU
--- NOTE | 2018-09-03 09:37 | Electrocardiograph Report ---
[address] [place], [place] [address] Test Date: 2018-09-02 Pat Name: Bre Lozano Department: 109 Room: IC11 Gender: F Device Processing Engineer: EDGARDO : 1935 Requested By: Johnson Robledo Order Number: [id number] Reading MD: Urbano Bhatti Measurements Intervals [place] Rate: 69 P: 73 [place]: 205 QRS: -82 QRSD: 140 T: -14 QT: 434 QTc: 453 Interpretive Statements SINUS RHYTHM RIGHT BUNDLE BRANCH BLOCK INFERIOR MYOCARDIAL INFARCTION, OF INDETERMINATE AGE ANTEROLATERAL MYOCARDIAL INFARCTION, PROBABLY RECENT ST ELEVATION, CONSIDER SEPTAL INJURY Electronically Signed On 09-03-2018 9:36:17 EST by Urbano Bhatti
--- NOTE | 2018-09-03 09:37 | Electrocardiograph Report ---
[address] [place], [place] [address] Test Date: 2018-09-02 Pat Name: Bre Lozano Department: 109 Room: 11 Gender: F Chute Boss: EDGARDO : 1935 Requested By: Johnson Robledo Order Number: [id number] Reading MD: Urbano Bhatti Measurements Intervals [place] Rate: 63 P: 74 [place]: 191 QRS: 267 QRSD: 140 T: 13 QT: 457 QTc: 464 Interpretive Statements SINUS RHYTHM MARKED RIGHT AXIS DEVIATION RIGHT BUNDLE BRANCH BLOCK INFERIOR MYOCARDIAL INFARCTION, OF INDETERMINATE AGE ANTEROLATERAL MYOCARDIAL INFARCTION, OF INDETERMINATE AGE Electronically Signed On 09-03-2018 9:35:46 EST by Urbano Bhatti
--- NOTE | 2018-09-03 09:38 | Electrocardiograph Report ---
[address] [place], [place] [address] Test Date: 2018-09-02 Pat Name: Bre Lozano Department: 109 Room: 11 Gender: F Parish Visitor: EDGARDO : 1935 Requested By: Johnson Robledo Order Number: [id number] Reading MD: Urbano Bhatti Measurements Intervals [place] Rate: 76 P: 80 [place]: 205 QRS: -80 QRSD: 141 T: 16 QT: 439 QTc: 469 Interpretive Statements SINUS RHYTHM WITH OCCASIONAL SUPRAVENTRICULAR PREMATURE COMPLEXES RIGHT BUNDLE BRANCH BLOCK INFERIOR MYOCARDIAL INFARCTION, OF INDETERMINATE AGE ANTEROLATERAL MYOCARDIAL INFARCTION, OF INDETERMINATE AGE ST ELEVATION, CONSIDER SEPTAL INJURY Electronically Signed On 09-03-2018 9:36:33 EST by Urbano Bhatti
--- NOTE | 2018-09-03 09:38 | Electrocardiograph Report ---
[address] [place] [address] Test Date: 2018-09-02 Pat Name: Bre Lozano Department: 109 Room: 11 Gender: F Mobile Service Rv Technician: EDGARDO : 1935 Requested By: Johnson Robledo Order Number: [id number] Reading MD: Urbano Bhatti Measurements Intervals [place] Rate: 91 P: 71 [place]: 203 QRS: -76 QRSD: 133 T: 19 QT: 406 QTc: 455 Interpretive Statements SINUS RHYTHM WITH FREQUENT SUPRAVENTRICULAR PREMATURE COMPLEXES INTRAVENTRICULAR CONDUCTION DELAY INFERIOR MYOCARDIAL INFARCTION, PROBABLY OLD WITH POSTERIOR EXTENSION ANTEROLATERAL MYOCARDIAL INFARCTION, OF INDETERMINATE AGE Electronically Signed On 09-03-2018 9:37:16 EST by Urbano Bhatti
--- NOTE | 2018-09-03 09:46 | Electrocardiograph Report ---
[address] [place] [address] Test Date: 2018-09-02 Pat Name: Bre Lozano Department: 109 Room: 11 Gender: F Road Repairer: EDGARDO : 1935 Requested By: Johnson Robledo Order Number: [id number] Reading MD: Urbano Bhatti Measurements Intervals [place] Rate: 109 P: [place]: 0 QRS: -52 QRSD: 144 T: 0 QT: 350 QTc: 414 Interpretive Statements ATRIAL FIBRILLATION WITH RAPID VENTRICULAR RESPONSE INTRAVENTRICULAR CONDUCTION DELAY INFERIOR MYOCARDIAL INFARCTION, POSSIBLY ACUTE WITH POSTERIOR EXTENSION ANTEROLATERAL MYOCARDIAL INFARCTION, OF INDETERMINATE AGE Electronically Signed On 09-03-2018 9:45:15 EST by Urbano Bhatti
== END 2018-09-02 10:36 | disposition expired | DRG 246 ==
LOC: EMEROOARM 05:06 → ICNU 05:52
PROVIDERS: ADMIT Internal Medicine Clinical Cardiac Electrophysiology; ATTEND Internal Medicine Interventional Cardiology